=== PATIENT | female | born 1975 | race Caucasian/White ===

== ENCOUNTER → 2016-10-21 | Outpatient (CLI) | payer BC, OTHER ==
[~2016-10-21] MED LIST: ASTE0.15; D 50CAP3 PO; FLOM5CAP PO; FLON1SPR; GABA300C3 PO; MULTCAP8 PO; OMEP40CA2 PO; PERCOCET PO; RELP40TA PO
--- NOTE | 2016-10-21 09:23 | REP ---
Clinical: Nephrolithiasis. Comparison: 09/30/2016. Findings: Single supine view of the abdomen and pelvis again demonstrates a small nonobstructing bilateral nephroliths. Calcifications in the pelvis remains stable and likely represent phleboliths. Nonspecific bowel gas pattern noted. Skeletal structures stable. Impression: Continued evidence for small bilateral nonobstructing renal calculi. Signed by Michelet Ortiz MD 10/21/2016 09:14 A
== END ==
LOC: M SMT 08:23
PROVIDERS: ATTEND Nurse Practitioner Women's Health
DX: N20.0 Calculus of kidney (principal)

== ENCOUNTER → 2016-12-24 | Outpatient (CLI) | payer BC, OTHER ==
[2016-12-24 10:32] LABS: BASO % 0.4 % (0.0-1.0); EOS # 0.1 K/mm3 (0.0-0.50); EOS % 1.5 % (0.0-3.0); LARGE UNSTAINED CELL # 0.2 K/mm3 (0.0-0.4); MEAN CORPUSCULAR HEMOGLOBIN 31.7 pg (27.0-33.0); MEAN CORPUSCULAR HGB CONC 34.5 g/dl (32.0-36.5); MEAN CORPUSCULAR VOLUME 91.8 fl (80.0-96.0); MONO # 0.5 K/mm3 (0.0-0.8); MONO % 6.2 % (0.0-5.0); NEUTROPHILS # 4.4 K/mm3 (1.8-7.7); PLATELET COUNT, AUTOMATED 348 k/mm3 (150-450); RED CELL DISTRIBUTION WIDTH 12.2 % (11.5-14.5); WHITE BLOOD COUNT 8.1 K/mm3 (4.0-10.0)
[2016-12-24 10:51] LABS: ALBUMIN 3.7 GM/DL (3.2-5.2); ALKALINE PHOSPHATASE 40 U/L (45-117); ALT/SGPT 26 U/L (12-78); ANION GAP 9 MEQ/L (8-16); AST/SGOT 15 U/L (15-37); BILIRUBIN,TOTAL 0.4 MG/DL (0.2-1.0); BLOOD UREA NITROGEN 10 MG/DL (7-18); CALCIUM LEVEL 8.6 MG/DL (8.5-10.1); CARBON DIOXIDE LEVEL 26 MEQ/L (21-32); CHLORIDE LEVEL 106 MEQ/L (98-107); CREATININE FOR GFR 0.78 MG/DL (0.55-1.02); GLOMERULAR FILTRATION RATE > 60.0 (>58); GLUCOSE, FASTING 92 MG/DL (70-105); POTASSIUM SERUM 4.2 MEQ/L (3.5-5.1); SODIUM LEVEL 141 MEQ/L (136-145); TOTAL PROTEIN 7.4 GM/DL (6.4-8.2)
== END ==
LOC: M LAB 09:57
PROVIDERS: ATTEND Physician Assistant
DX: R10.84 Generalized abdominal pain (principal)

== ENCOUNTER → 2016-12-24 | Outpatient (REF) | payer BC, OTHER | LOC: M SFHCCAPE 09:47 | PROVIDERS: ATTEND Physician Assistant | DX: R10.84 Generalized abdominal pain (principal); R19.5 Other fecal abnormalities ==

== ENCOUNTER → 2016-12-27 | Outpatient (CLI) | payer BC, OTHER ==
--- NOTE | 2016-12-27 07:58 | REP ---
Clinical: Abdominal pain. Technique: Linton scale ultrasound using curved array transducer. Findings: The liver and pancreas are normal in contour, size, and echogenicity without focal hepatic or pancreatic lesions identified. The gallbladder is normal without gallstones, wall thickening or pericholecystic fluid. No biliary ductal dilatation is appreciated, and the common bile duct measures 5.0 mm diameter. The right kidney is normal in reniform shape without hydronephrosis and measures 11.3 x 6.1 x 5.5 centimeters with possible 5 mm lower pole calculus. No ascites. Visualized portions of the abdominal aorta normal. Impression: 1. Essentially normal right upper quadrant and gallbladder abdominal ultrasound. 2. A 5 mm nonobstructing right lower pole renal calculus cannot be excluded. Signed by Michelet Ortiz MD 12/27/2016 07:50 A
== END ==
LOC: M RAD 06:45
PROVIDERS: ATTEND Physician Assistant
DX: R10.11 Right upper quadrant pain (principal)

== ENCOUNTER → 2016-12-30 | Outpatient (CLI) | payer BC, OTHER ==
[2016-12-30 13:47] LABS: CONTROL LINE UCG INT CTR LINE PRESENT
== END ==
LOC: M LAB 13:06
PROVIDERS: ATTEND Physician Assistant
DX: R10.84 Generalized abdominal pain (principal)

== ENCOUNTER → 2017-01-03 | Outpatient (CLI) | payer BC, OTHER ==
--- NOTE | 2017-01-03 10:40 | REP ---
BILIARY SCAN WITH GALLBLADDER EJECTION FRACTION: 01/03/2017. Comparison: Gallbladder ultrasound 12/27/2016. Clinical history: Upper abdominal pain, nausea, reflux symptoms and bloating with decreased appetite. Findings: The patient received 6.1 mCi technetium 99m mebrofenin via an IV with sequential 5-minute anterior images for 1 hour. Thereafter, region of interest drawn over the gallbladder and sequential 2-minute images for 1 hour obtained beginning 65 minutes post injection and after completion of consumption of 8 ounces of Ensure Enlive for fatty meal. Tracer distribution in the liver is homogeneous with activity first seen in the gallbladder fossa at 10 minutes, in the common duct at 15 minutes and in the duodenum by 25 minutes. Activity is into the small bowel by 30 minutes with progressive washout of activity from the liver, peristalsis and small bowel and increasing accumulation of activity in the gallbladder fossa. Gallbladder ejection fraction is calculated at 54% at 1 hour. With this technique, greater than 35% ejection fraction is normal. Impression: 1. Prompt biliary transit and normal gallbladder ejection fraction. Unremarkable biliary scan. Signed by Mack Hearn MD 01/03/2017 05:38 P
== END ==
LOC: M RAD 07:40
PROVIDERS: ATTEND Physician Assistant
DX: R10.84 Generalized abdominal pain (principal)

== ENCOUNTER → 2017-02-28 | Outpatient (REF) | payer BC, OTHER ==
[~2017-02-28] MED LIST changes: +GABA-282 PO; -GABA300C3 PO
[2017-02-28 22:03] LABS: CALCIUM OXALATE CRYSTALS MODERATE
== END ==
LOC: M LAB REF 09:16
PROVIDERS: ATTEND Physician Assistant
DX: N39.0 Urinary tract infection, site not specified (principal)

== ENCOUNTER → 2017-03-12 | Outpatient (REF) | payer OTHER | LOC: M LAB REF 09:42 | PROVIDERS: ATTEND Physician Assistant | DX: R30.0 Dysuria (principal) ==

== ENCOUNTER → 2017-03-16 | Outpatient (REF) | payer OTHER | LOC: M SMT 13:10 | PROVIDERS: ATTEND Nurse Practitioner Women's Health | DX: R39.89 Other symptoms and signs involving the genitourinary system (principal) ==

== ENCOUNTER → 2017-03-18 | Outpatient (REF) | payer OTHER | LOC: M SFHCWAGY 11:18 | PROVIDERS: ATTEND Nurse Practitioner Women's Health | DX: Z12.4 Encounter for screening for malignant neoplasm of cervix (principal) ==

== ENCOUNTER → 2017-03-18 | Outpatient (CLI) | payer BC, OTHER ==
--- NOTE | 2017-03-18 12:39 | REPMRS ---
Patient History The patient states she had a clinical breast exam in 03/2017. Family history of prostate cancer in paternal grandfather at age 50 or over, prostate cancer in maternal grandfather at age 50 or over, and prostate cancer in maternal uncle at age 50 or over. Benign stereotactic core biopsy of the right breast, April 02, 2003. Reductions of both breasts, 2002. Taking hormonal contraceptives for 12 years. Digital Woman Screen Mammo: March 18, 2017 - Exam #: [id number] Bilateral CC and MLO view(s) were taken. Technologist: Sushma Souza Technologist Prior study comparison: March 12, 2016, digital woman screen mammo performed at [facility]. March 04, 2015, digital woman screen mammo performed at [facility]. February 28, 2014, digital woman screen mammo performed at [facility]. FINDINGS: There are scattered fibroglandular densities. There has been no change in the appearance of the mammogram from the prior studies. There is a mild amount of scattered fibroglandular density which is fairly symmetric. There is no interval development of dominant mass, architectural distortion, or clustered microcalcification suggestive of malignancy. ASSESSMENT: BI-RADS/ACR category 1 mammogram. Negative. Recommendation Routine screening mammogram in 1 year (for women over age 40). This mammogram was interpreted with the aid of an FDA-approved computer-aided dectection system. Electronically Signed By: Juilo Rider MD 03/18/17 0526
== END ==
LOC: M WHC 10:57
PROVIDERS: ATTEND Nurse Practitioner Women's Health
DX: Z12.31 Encounter for screening mammogram for malignant neoplasm of breast (principal); Z92.0 Personal history of contraception

== ENCOUNTER 2017-04-27 14:38 | Emergency (ER) | payer BC, OTHER ==
[~2017-04-27] VITALS: Ht 162.6 cm; Wt 90.9 kg
[2017-04-27] MEDS ORDERED: KETOROLAC 30 MG/ML VIAL (J1885) IV ONE (15:15)
[2017-04-27 15:52] LABS: BASO % 0.6 % (0.0-1.0); EOS # 0.1 K/mm3 (0.0-0.50); LARGE UNSTAINED CELL # 0.2 K/mm3 (0.0-0.4); LARGE UNSTAINED CELL % 2.1 % (0.0-4.0); LYMPH # 3.7 K/mm3 (1.5-4.5); LYMPH % 44.5 % (24.0-44.0); MEAN CORPUSCULAR HEMOGLOBIN 32.7 pg (27.0-33.0); MEAN CORPUSCULAR HGB CONC 35.1 g/dl (32.0-36.5); MEAN CORPUSCULAR VOLUME 93.2 fl (80.0-96.0); MONO # 0.4 K/mm3 (0.0-0.8); MONO % 4.6 % (0.0-5.0); NEUTROPHILS # 3.8 K/mm3 (1.8-7.7); NEUTROPHILS % 47.2 % (36.0-66.0); PLATELET COUNT, AUTOMATED 313 k/mm3 (150-450)
[2017-04-27 16:03] LABS: ANION GAP 6 MEQ/L (8-16); BLOOD UREA NITROGEN 11 MG/DL (7-18); CALCIUM LEVEL 9.2 MG/DL (8.5-10.1); CARBON DIOXIDE LEVEL 24 MEQ/L (21-32); CHLORIDE LEVEL 107 MEQ/L (98-107); CREATININE FOR GFR 0.69 MG/DL (0.55-1.02); GLOMERULAR FILTRATION RATE > 60.0 (>58); GLUCOSE, FASTING 85 MG/DL (70-105); POTASSIUM SERUM 4.1 MEQ/L (3.5-5.1); SODIUM LEVEL 137 MEQ/L (136-145)
[2017-04-27 16:44] VITALS: BP 142/84
--- NOTE | 2017-04-27 16:47 | REP ---
CT abdomen and pelvis without IV and oral contrast: Comparison is 09/15/2016. There is a 4 mm calcification in the distal right ureter at its junction with the urinary bladder. There is mild right hydronephrosis. There is no left ureteral calculus. There is no left hydronephrosis. There is a 6 ml nonobstructive calculus at the mid pole of the right kidney. There are no other left renal calculi. There is a 5 mm nonobstructive calculus in the lower pole of the left kidney. There are no other left renal calculi. There is no perinephric stranding on the right on the left. The visualized lung blank are unremarkable. The unenhanced hepatic parenchyma, gallbladder, pancreas and spleen are normal size and unremarkable. The adrenals and abdominal aorta are unremarkable. There is no bowel distension or obstruction. The mesentery is unremarkable. Pelvis: The appendix has a normal appearance. There are bilateral tubal ligation clips, unchanged. The uterus and adnexa are otherwise unremarkable. There is no ascites or adenopathy. The pelvic bowel loops are unremarkable. Impression: The there is a 4 mm calcification in the distal right ureter at its junction with the urinary bladder and mild right hydronephrosis. There are bilateral nonobstructive renal calculi. Signed by Kiel Mello MD 04/27/2017 04:39 P
[2017-04-27] MEDS ORDERED: NAPR500T PO (16:50)
[2017-04-27] MEDS ORDERED: NORCOTAB PO (16:50)
[2017-04-27] MEDS ORDERED: FLOM5CAP PO (16:50)
== END 2017-04-27 17:04 | disposition home or self-care (01) ==
LOC: M ED 14:38
DX: N20.1 Calculus of ureter (principal)
CPT/HCPCS: 36415; 74176; 80048; 81001; 81025; 85025; 86140; 87086; 96374; 99284; J1885

== ENCOUNTER → 2017-05-31 | Outpatient (REF) | payer OTHER ==
[~2017-05-31] MED LIST changes: +NAPR500T PO; +NORCOTAB PO
== END ==
LOC: M SFHCCAPE 12:55
PROVIDERS: ATTEND Physician Assistant
DX: Z87.442 Personal history of urinary calculi (principal)

== ENCOUNTER → 2017-06-23 | Outpatient (CLI) | payer OTHER ==
[2017-06-23 13:35] LABS: BASO % 0.6 % (0.0-1.0); EOS # 0.1 K/mm3 (0.0-0.50); LARGE UNSTAINED CELL # 0.2 K/mm3 (0.0-0.4); LARGE UNSTAINED CELL % 2.2 % (0.0-4.0); LYMPH # 2.7 K/mm3 (1.5-4.5); LYMPH % 39.9 % (24.0-44.0); MEAN CORPUSCULAR HEMOGLOBIN 32.5 pg (27.0-33.0); MEAN CORPUSCULAR HGB CONC 34.6 g/dl (32.0-36.5); MEAN CORPUSCULAR VOLUME 93.9 fl (80.0-96.0); MONO # 0.3 K/mm3 (0.0-0.8); MONO % 4.6 % (0.0-5.0); NEUTROPHILS # 3.5 K/mm3 (1.8-7.7); NEUTROPHILS % 50.8 % (36.0-66.0); PLATELET COUNT, AUTOMATED 352 k/mm3 (150-450); RED CELL DISTRIBUTION WIDTH 11.9 % (11.5-14.5); WHITE BLOOD COUNT 6.9 K/mm3 (4.0-10.0)
[2017-06-23 14:03] LABS: ALBUMIN 3.5 GM/DL (3.2-5.2); ALBUMIN/GLOBULIN RATIO 1.03 (1.00-1.93); ALKALINE PHOSPHATASE 37 U/L (45-117); ALT/SGPT 23 U/L (12-78); ANION GAP 10 MEQ/L (8-16); AST/SGOT 14 U/L (15-37); BILIRUBIN,TOTAL 0.4 MG/DL (0.2-1.0); BLOOD UREA NITROGEN 14 MG/DL (7-18); CALCIUM LEVEL 8.8 MG/DL (8.5-10.1); CARBON DIOXIDE LEVEL 26 MEQ/L (21-32); CHLORIDE LEVEL 106 MEQ/L (98-107); CHOLESTEROL LEVEL 227 MG/DL (<200); CREATININE FOR GFR 0.65 MG/DL (0.55-1.02); FREE T4 1.05 NG/DL (0.76-1.46); GLOMERULAR FILTRATION RATE > 60.0 (>58); GLUCOSE, FASTING 79 MG/DL (70-105); POTASSIUM SERUM 4.6 MEQ/L (3.5-5.1); SODIUM LEVEL 142 MEQ/L (136-145); TOTAL PROTEIN 6.9 GM/DL (6.4-8.2); TRIGLYCERIDES LEVEL 161 MG/DL (<150)
== END ==
LOC: M WUC 10:06
PROVIDERS: ATTEND Physician Assistant
DX: E66.09 Other obesity due to excess calories (principal)

== ENCOUNTER → 2017-07-19 | Outpatient (CLI) | payer BC, OTHER ==
--- NOTE | 2017-07-19 14:13 | REP ---
Chest two views HISTORY: Bronchitis Comparison: 05/13/2015 The lungs are clear. The heart is normal in size. The pulmonary vasculature is normal in appearance. The bony structure is intact. IMPRESSION: No acute disease. Signed by Cole Maldonado MD 07/19/2017 02:04 P
== END ==
LOC: M WUC 11:33
PROVIDERS: ATTEND Physician Assistant
DX: J20.9 Acute bronchitis, unspecified (principal)

== ENCOUNTER → 2017-08-17 | Outpatient (CLI) | payer BC, OTHER ==
[2017-08-17 14:14] LABS: BASO % 0.6 % (0.0-1.0); EOS # 0.1 10^3/uL (0.0-0.50); IMMATURE GRANULOCYTE % 0.6 % (0-0); LYMPH # 3.4 10^3/uL (1.5-4.5); LYMPH % 48.6 % (24.0-44.0); MEAN CORPUSCULAR HEMOGLOBIN 31.5 pg (27.0-33.0); MEAN CORPUSCULAR HGB CONC 33.6 g/dl (32.0-36.5); MEAN CORPUSCULAR VOLUME 93.7 fl (80.0-96.0); MONO # 0.6 10^3/uL (0.0-0.8); MONO % 8.1 % (0.0-5.0); NEUTROPHILS # 2.9 10^3/uL (1.8-7.7); NEUTROPHILS % 41.1 % (36.0-66.0); PLATELET COUNT, AUTOMATED 391 10^3/uL (150-450); RED CELL DISTRIBUTION WIDTH 12.6 % (11.5-14.5)
[2017-08-22 14:11] LABS: ANTI TETANUS ANTIBODY 1.06 IU/mL (<0.10); IMMUNOGLOBULIN D 4.69 mg/dL (<14.11); STREP PNEUMO TYPE 12F 0.1 ug/mL (>1.3); STREP PNEUMO TYPE 18C 11.4 ug/mL (>1.3); STREP PNEUMO TYPE 19A 30.3 ug/mL (>1.3); STREP PNEUMO TYPE 19F 1.1 ug/mL (>1.3); STREP PNEUMO TYPE 23F 1.2 ug/mL (>1.3); STREP PNEUMO TYPE 6B 10.2 ug/mL (>1.3); STREP PNEUMO TYPE 7F 0.5 ug/mL (>1.3); STREP PNEUMO TYPE 9N 0.5 ug/mL (>1.3); STREP PNEUMO TYPE 9V 0.5 ug/mL (>1.3)
== END ==
LOC: M SMT 11:41
PROVIDERS: ATTEND Allergy & Immunology Allergy
DX: R05 Cough (principal); J30.89 Other allergic rhinitis; D84.9 Immunodeficiency, unspecified

== ENCOUNTER → 2017-08-22 | Outpatient (CLI) | payer BC, OTHER ==
[2017-08-24 00:07] LABS: Lyme Disease IgG/IgM Antibodie <0.91 ISR (0.00-0.90); Lyme Disease IgM Ab Quantitati <0.80 index (0.00-0.79)
== END ==
LOC: M WUC 09:03
PROVIDERS: ATTEND Physician Assistant
DX: A69.20 Lyme disease, unspecified (principal)

== ENCOUNTER → 2017-09-07 | Outpatient (REF) | payer OTHER ==
[2017-09-10 00:08] LABS: Lyme Disease IgG/IgM Antibodie <0.91 ISR (0.00-0.90); Lyme Disease IgM Ab Quantitati <0.80 index (0.00-0.79)
== END ==
LOC: M SFHCCAPE 17:50
PROVIDERS: ATTEND Physician Assistant
DX: A69.20 Lyme disease, unspecified (principal)

== ENCOUNTER → 2017-10-17 | Outpatient (CLI) | payer OTHER ==
[2017-10-21 14:16] LABS: STREP PNEUMO TYPE 1 >10.6 ug/mL (>1.3); STREP PNEUMO TYPE 12F 3.1 ug/mL (>1.3); STREP PNEUMO TYPE 14 >46.7 ug/mL (>1.3); STREP PNEUMO TYPE 18C >19.0 ug/mL (>1.3); STREP PNEUMO TYPE 19A >30.4 ug/mL (>1.3); STREP PNEUMO TYPE 19F >42.9 ug/mL (>1.3); STREP PNEUMO TYPE 23F 10.4 ug/mL (>1.3); STREP PNEUMO TYPE 3 5.2 ug/mL (>1.3); STREP PNEUMO TYPE 4 >24.7 ug/mL (>1.3); STREP PNEUMO TYPE 6B >70.6 ug/mL (>1.3); STREP PNEUMO TYPE 7F >30.2 ug/mL (>1.3); STREP PNEUMO TYPE 8 5.7 ug/mL (>1.3); STREP PNEUMO TYPE 9N >31.2 ug/mL (>1.3); STREP PNEUMO TYPE 9V >20.4 ug/mL (>1.3)
== END ==
LOC: M WUC 13:28
DX: J32.9 Chronic sinusitis, unspecified (principal)

== ENCOUNTER 2017-11-19 10:38 | Emergency (ER) | payer BC, OTHER ==
[2017-11-19 11:09] LABS: BASO % 0.5 % (0.0-1.0); EOS # 0.1 10^3/uL (0.0-0.50); EOS % 1.1 % (0.0-3.0); HEMATOCRIT 41.6 % (36.0-47.0); HEMOGLOBIN 14.3 g/dl (12.0-16.0); IMMATURE GRANULOCYTE % 0.4 % (0-3.0); LYMPH # 3.3 10^3/uL (1.5-4.5); LYMPH % 44.5 % (24.0-44.0); MEAN CORPUSCULAR HEMOGLOBIN 31.6 pg (27.0-33.0); MEAN CORPUSCULAR HGB CONC 34.4 g/dl (32.0-36.5); MONO # 0.5 10^3/uL (0.0-0.8); MONO % 7.1 % (0.0-5.0); NEUTROPHILS # 3.5 10^3/uL (1.8-7.7); NEUTROPHILS % 46.4 % (36.0-66.0); PLATELET COUNT, AUTOMATED 357 10^3/uL (150-450); RED BLOOD COUNT 4.52 10^6/uL (4.00-5.40); RED CELL DISTRIBUTION WIDTH 12.1 % (11.5-14.5); WHITE BLOOD COUNT 7.5 10^3/uL (4.0-10.0)
[2017-11-19] MEDS: KETOROLAC 30 MG/ML VIAL (J1885) IV (11:22)
[2017-11-19 11:41] LABS: D-DIMER QUANT < 270.0 ng/ml (<500)
[2017-11-19 11:49] LABS: ALBUMIN 3.6 GM/DL (3.2-5.2); ALKALINE PHOSPHATASE 49 U/L (45-117); ALT/SGPT 52 U/L (12-78); ANION GAP 7 MEQ/L (8-16); AST/SGOT 29 U/L (7-37); BILIRUBIN,DIRECT < 0.1 MG/DL (0.0-0.2); BILIRUBIN,TOTAL 0.5 MG/DL (0.2-1.0); BLOOD UREA NITROGEN 10 MG/DL (7-18); CALCIUM LEVEL 8.9 MG/DL (8.5-10.1); CARBON DIOXIDE LEVEL 26 MEQ/L (21-32); CHLORIDE LEVEL 108 MEQ/L (98-107); CPK CREATINE PHOSPHOKINASE 67 U/L (26-192); CREATININE FOR GFR 0.88 MG/DL (0.55-1.30); GLOMERULAR FILTRATION RATE > 60.0 (>58); GLUCOSE, FASTING 102 MG/DL (70-100); SODIUM LEVEL 141 MEQ/L (136-145); TOTAL PROTEIN 7.6 GM/DL (6.4-8.2); TROPONIN I < 0.02 NG/ML (< 0.10)
[2017-11-19 11:54] LABS: MB/CK RELATIVE INDEX 1.49 (< OR =4)
[2017-11-19] MEDS: PERCOCET 5MG/325MG TAB PO (12:21)
[2017-11-19 14:17] LABS: CPK CREATINE PHOSPHOKINASE 59 U/L (26-192); MB/CK RELATIVE INDEX 1.69 (< OR =4); TROPONIN I < 0.02 NG/ML (< 0.10)
[2017-11-19] MEDS: ASPIRIN 81 MG CHEW TABLET PO (15:00)
== END 2017-11-19 15:05 | disposition home or self-care (01) ==
LOC: M ED 10:38
DX: R07.9 Chest pain, unspecified (principal); Z82.49 Family history of ischemic heart disease and other diseases of the circulatory system; Z79.899 Other long term (current) drug therapy; Z79.82 Long term (current) use of aspirin
CPT/HCPCS: J1885

== ENCOUNTER → 2017-11-22 | Outpatient (CLI) | payer OTHER, BC ==
[2017-11-22 18:08] LABS: BASO # 0.1 10^3/uL (0.0-0.2); BASO % 0.6 % (0.0-1.0); EOS # 0.1 10^3/uL (0.0-0.50); EOS % 1.1 % (0.0-3.0); HEMATOCRIT 39.8 % (36.0-47.0); HEMOGLOBIN 13.5 g/dl (12.0-16.0); IMMATURE GRANULOCYTE % 0.3 % (0-3.0); LYMPH # 3.6 10^3/uL (1.5-4.5); LYMPH % 37.5 % (24.0-44.0); MEAN CORPUSCULAR HEMOGLOBIN 31.3 pg (27.0-33.0); MEAN CORPUSCULAR HGB CONC 33.9 g/dl (32.0-36.5); MEAN CORPUSCULAR VOLUME 92.3 fl (80.0-96.0); MONO # 0.7 10^3/uL (0.0-0.8); MONO % 6.9 % (0.0-5.0); NEUTROPHILS # 5.1 10^3/uL (1.8-7.7); NEUTROPHILS % 53.6 % (36.0-66.0); PLATELET COUNT, AUTOMATED 381 10^3/uL (150-450); RED BLOOD COUNT 4.31 10^6/uL (4.00-5.40); WHITE BLOOD COUNT 9.5 10^3/uL (4.0-10.0)
[2017-11-22 18:47] LABS: ERYTHROCYTE SEDIMENTATION RATE 7 mm/hr (0-20)
[2017-11-22 19:29] LABS: ALBUMIN 3.8 GM/DL (3.2-5.2); ALBUMIN/GLOBULIN RATIO 1.03 (1.00-1.93); ALKALINE PHOSPHATASE 49 U/L (45-117); ALT/SGPT 47 U/L (12-78); ANION GAP 8 MEQ/L (8-16); AST/SGOT 22 U/L (7-37); BILIRUBIN,TOTAL 0.3 MG/DL (0.2-1.0); BLOOD UREA NITROGEN 12 MG/DL (7-18); CALCIUM LEVEL 8.8 MG/DL (8.5-10.1); CARBON DIOXIDE LEVEL 27 MEQ/L (21-32); CHLORIDE LEVEL 105 MEQ/L (98-107); CREATININE FOR GFR 0.81 MG/DL (0.55-1.30); GLOMERULAR FILTRATION RATE > 60.0 (>58); GLUCOSE, FASTING 99 MG/DL (70-100); RHEUMATOID FACTOR QUANT < 10.0 IU/ML (0-15.0); SODIUM LEVEL 140 MEQ/L (136-145); TOTAL PROTEIN 7.5 GM/DL (6.4-8.2)
[2017-11-24 10:13] LABS: ANTINUCLEAR ANTIBODIES DIRECT Negative (Negative)
== END ==
LOC: M WUC 13:59
DX: R51 Headache (principal)
CPT/HCPCS: 84443

== ENCOUNTER → 2018-01-02 | Outpatient (CLI) | payer OTHER, BC ==
[2018-01-02 17:40] LABS: FOLLICLE STIMULATING HORMONE 10.9 mIU/mL; LUTEINIZING HORMONE 3.7 mIU/mL
== END ==
LOC: M WUC 11:01
DX: R23.2 Flushing (principal); R61 Generalized hyperhidrosis
CPT/HCPCS: 83001

== ENCOUNTER → 2018-02-23 | Outpatient (CLI) | payer BC | LOC: M WHC 10:21 | DX: N85.2 Hypertrophy of uterus (principal); D25.1 Intramural leiomyoma of uterus; D25.0 Submucous leiomyoma of uterus; N92.6 Irregular menstruation, unspecified | CPT/HCPCS: 76830 ==

== ENCOUNTER → 2018-03-20 | Outpatient (CLI) | payer BC | LOC: M WHC 09:40 | DX: Z12.31 Encounter for screening mammogram for malignant neoplasm of breast (principal) | CPT/HCPCS: 77067 ==

== ENCOUNTER 2018-05-02 08:47 | Emergency (ER) | payer BC, OTHER ==
[2018-05-02 09:38] LABS: KETONE, URINE AUTO RFX NEGATIVE (NEGATIVE); LEUKOCYTE ESTERASE UR AUTO RFX NEGATIVE (NEGATIVE); NITRITE, URINE AUTO RFX NEGATIVE (NEGATIVE); RBC, URINE AUTO RFX TNTC /HPF (0-3); SPECIFIC GRAVITY UR AUTO RFX 1.016 (1.002-1.035); SQUAM EPITHELIAL CELL UR AURFX 0 /HPF (0-6); YEAST LIKE CELL URINE AUTO RFX MODERATE
[2018-05-02 09:39] LABS: WBC, URINE AUTO RFX 31 /HPF (0-3)
[2018-05-02 10:30] LABS: BASO # 0.1 10^3/uL (0.0-0.2); BASO % 0.6 % (0.0-1.0); EOS # 0.1 10^3/uL (0.0-0.50); EOS % 1.6 % (0.0-3.0); HEMATOCRIT 38.2 % (36.0-47.0); HEMOGLOBIN 12.9 g/dl (12.0-15.5); IMMATURE GRANULOCYTE % 0.6 % (0-3.0); LYMPH # 2.7 10^3/uL (1.5-4.5); LYMPH % 31.2 % (24.0-44.0); MEAN CORPUSCULAR HEMOGLOBIN 31.1 pg (27.0-33.0); MEAN CORPUSCULAR HGB CONC 33.8 g/dl (32.0-36.5); MONO # 0.9 10^3/uL (0.0-0.8); NEUTROPHILS # 4.9 10^3/uL (1.8-7.7); PLATELET COUNT, AUTOMATED 325 10^3/uL (150-450); RED BLOOD COUNT 4.15 10^6/uL (4.00-5.40); RED CELL DISTRIBUTION WIDTH 12.4 % (11.5-14.5); WHITE BLOOD COUNT 8.7 10^3/uL (4.0-10.0)
[2018-05-02] MEDS: NS 1,000 ML IV (10:31)
[2018-05-02] MEDS: KETOROLAC 30 MG/ML VIAL (J1885) IV (10:31)
[2018-05-02 10:47] LABS: ALBUMIN 3.3 GM/DL (3.2-5.2); ALBUMIN/GLOBULIN RATIO 0.94 (1.00-1.93); ALKALINE PHOSPHATASE 46 U/L (45-117); ALT/SGPT 25 U/L (12-78); ANION GAP 7 MEQ/L (8-16); AST/SGOT 15 U/L (7-37); BILIRUBIN,TOTAL 0.2 MG/DL (0.2-1.0); BLOOD UREA NITROGEN 16 MG/DL (7-18); CALCIUM LEVEL 8.6 MG/DL (8.5-10.1); CARBON DIOXIDE LEVEL 24 MEQ/L (21-32); CHLORIDE LEVEL 111 MEQ/L (98-107); CREATININE FOR GFR 0.78 MG/DL (0.55-1.30); GLOMERULAR FILTRATION RATE > 60.0 (>58); GLUCOSE, FASTING 98 MG/DL (70-100); LIPASE 373 U/L (73-393); POTASSIUM SERUM 4.8 MEQ/L (3.5-5.1); SODIUM LEVEL 142 MEQ/L (136-145); TOTAL PROTEIN 6.8 GM/DL (6.4-8.2)
== END 2018-05-02 11:17 | disposition home or self-care (01) ==
LOC: M ED 08:47
DX: N20.1 Calculus of ureter (principal); I10 Essential (primary) hypertension; M79.7 Fibromyalgia; K21.9 Gastro-esophageal reflux disease without esophagitis; Z87.442 Personal history of urinary calculi; Z79.899 Other long term (current) drug therapy; Z79.82 Long term (current) use of aspirin; Z79.51 Long term (current) use of inhaled steroids
CPT/HCPCS: J1885

== ENCOUNTER → 2018-05-10 | Outpatient (REF) | payer OTHER ==
[2018-05-10 18:52] LABS: APPEARANCE, URINE CLEAR (CLEAR); BACTERIA, URINE AUTO NEGATIVE (NEGATIVE); BILIRUBIN, URINE AUTO NEGATIVE (NEGATIVE); BLOOD, URINE BLOOD NEGATIVE (NEGATIVE); COLOR, URINE YELLOW (YELLOW); GLUCOSE, URINE (UA) AUTO NEGATIVE (NEGATIVE); KETONE, URINE AUTO NEGATIVE (NEGATIVE); LEUKOCYTE ESTERASE, URINE AUTO NEGATIVE (NEGATIVE); MUCUS, URINE SMALL (NEGATIVE); NITRITE, URINE AUTO NEGATIVE (NEGATIVE); PROTEIN, URINE AUTO NEGATIVE (NEGATIVE); RBC, URINE AUTO 1 /HPF (0-3); SPECIFIC GRAVITY URINE AUTO 1.012 (1.002-1.035); SQUAMOUS EPITHELIAL CELL UR AU 0 /HPF (0-6); UROBILINOGEN, URINE AUTO 0.2 mg/dL (0.0-2.0); WBC, URINE AUTO 3 /HPF (0-3)
== END ==
LOC: M SMT 17:05
DX: N13.2 Hydronephrosis with renal and ureteral calculous obstruction (principal)

== ENCOUNTER → 2018-05-24 | Outpatient (CLI) | payer BC, OTHER ==
[2018-05-24 13:44] LABS: AMORPHOUS SEDIMENT SMALL (NEGATIVE); APPEARANCE, URINE CLOUDY (CLEAR); BACTERIA, URINE AUTO 2+ (NEGATIVE); BILIRUBIN, URINE AUTO NEGATIVE (NEGATIVE); BLOOD, URINE BLOOD 1+ (NEGATIVE); COLOR, URINE YELLOW (YELLOW); GLUCOSE, URINE (UA) AUTO NEGATIVE (NEGATIVE); KETONE, URINE AUTO NEGATIVE (NEGATIVE); LEUKOCYTE ESTERASE, URINE AUTO 2+ (NEGATIVE); MUCUS, URINE SMALL (NEGATIVE); NITRITE, URINE AUTO NEGATIVE (NEGATIVE); PROTEIN, URINE AUTO NEGATIVE (NEGATIVE); RBC, URINE AUTO 6 /HPF (0-3); SPECIFIC GRAVITY URINE AUTO 1.014 (1.002-1.035); SQUAMOUS EPITHELIAL CELL UR AU 3 /HPF (0-6); UROBILINOGEN, URINE AUTO 0.2 mg/dL (0.0-2.0); WBC, URINE AUTO 44 /HPF (0-3)
[2018-05-24 17:30] LABS: HEMATOCRIT 37.6 % (36.0-47.0); HEMOGLOBIN 12.6 g/dl (12.0-15.5); MEAN CORPUSCULAR HEMOGLOBIN 31.4 pg (27.0-33.0); MEAN CORPUSCULAR HGB CONC 33.5 g/dl (32.0-36.5); MEAN CORPUSCULAR VOLUME 93.8 fl (80.0-96.0); PLATELET COUNT, AUTOMATED 393 10^3/uL (150-450); RED BLOOD COUNT 4.01 10^6/uL (4.00-5.40); RED CELL DISTRIBUTION WIDTH 12.2 % (11.5-14.5); WHITE BLOOD COUNT 8.4 10^3/uL (4.0-10.0)
[2018-05-24 17:43] LABS: INR 0.94; PROTHROMBIN TIME 12.6 SECONDS (12.1-14.4)
[2018-05-24 17:44] LABS: PARTIAL THROMBOPLASTIN TIME 36.2 SECONDS (25.4-37.6)
[2018-05-24 17:56] LABS: ANION GAP 12 MEQ/L (8-16); BLOOD UREA NITROGEN 20 MG/DL (7-18); CARBON DIOXIDE LEVEL 23 MEQ/L (21-32); CHLORIDE LEVEL 107 MEQ/L (98-107); CREATININE FOR GFR 1.14 MG/DL (0.55-1.30); GLOMERULAR FILTRATION RATE 54.9 (>58); GLUCOSE, FASTING 82 MG/DL (70-100); POTASSIUM SERUM 4.8 MEQ/L (3.5-5.1); SODIUM LEVEL 142 MEQ/L (136-145)
== END ==
LOC: M SMT 10:07
DX: Z01.812 Encounter for preprocedural laboratory examination (principal); N20.1 Calculus of ureter
CPT/HCPCS: 80048

== ENCOUNTER 2018-05-25 06:00 | Day surgery (SDC) | payer BC, OTHER ==
[~2018-05-25 06:00] MED LIST changes: -ASTE0.15; +CIPROFLOXACIN 500 MG TAB PO; -D 50CAP3 PO; -FLOM5CAP PO; -FLON1SPR; -GABA-282 PO; -MULTCAP8 PO; -NAPR500T PO; -NORCOTAB PO; -OMEP40CA2 PO; -PERCOCET PO; -RELP40TA PO
[2018-05-25] MEDS ORDERED: LR 1,000 ML IV ×2 (06:15→09:15)
[2018-05-25] MEDS ORDERED: fentaNYL 100 MCG/2 ML INJECTION (J3010) As Ordered ×2 (07:00→07:52)
[2018-05-25] MEDS ORDERED: MIDAZOLAM INJ 2 MG/2 ML VIAL (J2250) As Ordered (07:00)
[2018-05-25] MEDS ORDERED: PROPOFOL 200 MG/20 ML VIAL As Ordered (07:01)
[2018-05-25] MEDS ORDERED: LIDOCAINE 2% INJ 100 MG/5 ML SDV (FOR ANES.) As Ordered (07:01)
[2018-05-25] MEDS ORDERED: dexameTHASONE 4 MG/ML 1ML VIAL (J1100) As Ordered (07:03)
[2018-05-25] MEDS ORDERED: ONDANSETRON 4MG/2ML VIAL (J2405) As Ordered (07:03)
[2018-05-25] MEDS ORDERED: SCOPOLAMINE 1MG TRANSDERMAL PATCH As Ordered (07:20)
[2018-05-25] MEDS ORDERED: SCOPOLAMINE 1MG TRANSDERMAL PATCH TOP (07:30)
[2018-05-25] MEDS ORDERED: KETOROLAC 60 MG/2 ML VIAL (J1885) As Ordered (07:47)
[2018-05-25] MEDS: CONRAY-60 60% 50ML VIAL (Q9961) As Ordered (07:59)
[2018-05-25] MEDS ORDERED: TAMSULOSIN 0.4 MG CAP PO (09:00)
[2018-05-25] MEDS ORDERED: ONDANSETRON 4MG/2ML VIAL (J2405) IV (09:15)
[2018-05-25] MEDS ORDERED: fentaNYL 100 MCG/2 ML INJECTION (J3010) IV (09:15)
[2018-05-25] MEDS ORDERED: HYDROMORPHONE HCL 0.5 MG/ 0.5 ML SYRINGE (J1170 PER 1) IV (09:15)
[2018-05-25] MEDS ORDERED: PERCOCET 5MG/325MG TAB PO (09:15)
[2018-05-25] MEDS: PERCOCET 5MG/325MG TAB PO ×2 (09:17→09:45)
[2018-06-01 00:06] LABS: CA Oxalate Dihy 35 % (.); Ca Ox Monohydrate 60 % (.); Size 5x5x3 mm (.)
== END 2018-05-25 10:26 | disposition home or self-care (01) ==
LOC: M SDC 06:00
DX: N20.1 Calculus of ureter (principal); I10 Essential (primary) hypertension; K21.9 Gastro-esophageal reflux disease without esophagitis; M79.7 Fibromyalgia; J45.909 Unspecified asthma, uncomplicated; F32.9 Major depressive disorder, single episode, unspecified; F41.9 Anxiety disorder, unspecified; Z79.899 Other long term (current) drug therapy; Z79.82 Long term (current) use of aspirin
CPT/HCPCS: 52356

== ENCOUNTER 2018-06-23 12:48 | Day surgery (SDC) | payer BC, OTHER ==
[~2018-06-23 12:48] MED LIST changes: -CIPROFLOXACIN 500 MG TAB PO; +GLYCOPYRROLATE INJ 0.2 MG/ML 2 ML VIAL As Ordered; +HYDROmorphone HCL 2 MG/ML 1ML VIAL (J1170) As Ordered; +KETOROLAC 60 MG/2 ML VIAL (J1885) As Ordered; +LABETALOL HCL 100 MG/20 ML VIAL As Ordered; +LIDOCAINE 2% INJ 100 MG/5 ML SDV (FOR ANES.) As Ordered; +MIDAZOLAM INJ 2 MG/2 ML VIAL (J2250) As Ordered; +NEOSTIGMINE 10 MG/10 ML VIAL (J2710) As Ordered; +ONDANSETRON 4MG/2ML VIAL (J2405) As Ordered; +PROPOFOL 200 MG/20 ML VIAL As Ordered; +ROCURONIUM BROMIDE 50 MG/5 ML VIAL As Ordered; +dexameTHASONE 4 MG/ML 1ML VIAL (J1100) As Ordered; +fentaNYL 100 MCG/2 ML INJECTION (J3010) As Ordered
[2018-06-23] MEDS: SCOPOLAMINE 1MG TRANSDERMAL PATCH TOP (15:44)
[2018-06-23] MEDS: LR 1,000 ML IV ×2 (15:45→19:15)
[2018-06-23] MEDS: METHYLENE BLUE 0.5% (5MG/ML) 10 ML AMP (PROVAYBLUE)(Q9968 PER 1MG) As Ordered (15:45)
[2018-06-23] MEDS: BUPIVACAINE HCL 0.25% 30 ML VIAL As Ordered (16:42)
[2018-06-23] MEDS ORDERED: HYDROMORPHONE HCL 0.5 MG/ 0.5 ML SYRINGE (J1170 PER 1) IV (19:15)
[2018-06-23] MEDS ORDERED: MORPHINE 4 MG/ML 1ML VIAL/SYRINGE (J2270) IV (19:15)
[2018-06-23] MEDS ORDERED: PERCOCET 5MG/325MG TAB PO ×2 (19:15)
[2018-06-23] MEDS ORDERED: PROMETHAZINE INJ 25 MG/ML VIAL (J2550) IV (19:15)
[2018-06-23] MEDS ORDERED: fentaNYL 100 MCG/2 ML INJECTION (J3010) IV (19:15)
[2018-06-23] MEDS ORDERED: ONDANSETRON 4MG/2ML VIAL (J2405) IV (19:15)
[2018-06-23] MEDS ORDERED: LR 1,000 ML IV (19:15)
[2018-06-23] MEDS: KETOROLAC 30 MG/ML VIAL (J1885) IV (20:44)
[2018-06-23] MEDS: zolPIDEM TARTRATE 5 MG TAB PO (20:45)
[2018-06-23] MEDS: PERCOCET 5MG/325MG TAB PO (22:30)
[2018-06-23] MEDS ORDERED: diphenhydrAMINE 25 MG CAP PO (23:30)
[2018-06-24] MEDS: KETOROLAC 30 MG/ML VIAL (J1885) IV ×2 (03:06→08:52)
[2018-06-24] MEDS: PERCOCET 5MG/325MG TAB PO ×2 (06:01→10:41)
[2018-06-24 06:20] LABS: HEMATOCRIT 35.7 % (36.0-47.0); HEMOGLOBIN 12.1 g/dl (12.0-15.5); MEAN CORPUSCULAR HEMOGLOBIN 31.3 pg (27.0-33.0); MEAN CORPUSCULAR HGB CONC 33.9 g/dl (32.0-36.5); MEAN CORPUSCULAR VOLUME 92.5 fl (80.0-96.0); PLATELET COUNT, AUTOMATED 336 10^3/uL (150-450); RED BLOOD COUNT 3.86 10^6/uL (4.00-5.40); RED CELL DISTRIBUTION WIDTH 12.7 % (11.5-14.5); WHITE BLOOD COUNT 13.4 10^3/uL (4.0-10.0)
[2018-06-24] MEDS: CEPACOL LOZENGE PO (09:27)
[2018-06-24] MEDS ORDERED: zolPIDEM TARTRATE 10MG TAB PO (21:00)
== END 2018-06-24 11:21 | disposition home or self-care (01) ==
LOC: M SDC 12:48 → M MSPAV 19:50
DX: N93.9 Abnormal uterine and vaginal bleeding, unspecified (principal); I10 Essential (primary) hypertension; E78.00 Pure hypercholesterolemia, unspecified; K21.9 Gastro-esophageal reflux disease without esophagitis; M79.7 Fibromyalgia; F41.9 Anxiety disorder, unspecified; F32.9 Major depressive disorder, single episode, unspecified; G43.909 Migraine, unspecified, not intractable, without status migrainosus; J45.909 Unspecified asthma, uncomplicated; R06.83 Snoring; G47.30 Sleep apnea, unspecified; Z88.8 Allergy status to other drugs, medicaments and biological substances; Z79.899 Other long term (current) drug therapy; Z79.3 Long term (current) use of hormonal contraceptives; Z79.82 Long term (current) use of aspirin; Z87.442 Personal history of urinary calculi; Z98.51 Tubal ligation status
CPT/HCPCS: 58571

== ENCOUNTER → 2018-06-27 | Outpatient (REF) | payer OTHER ==
[2018-06-27 13:48] LABS: APPEARANCE, URINE CLEAR (CLEAR); BACTERIA, URINE AUTO NEGATIVE (NEGATIVE); BILIRUBIN, URINE AUTO NEGATIVE (NEGATIVE); BLOOD, URINE BLOOD NEGATIVE (NEGATIVE); COLOR, URINE STRAW (YELLOW); GLUCOSE, URINE (UA) AUTO NEGATIVE (NEGATIVE); KETONE, URINE AUTO NEGATIVE (NEGATIVE); LEUKOCYTE ESTERASE, URINE AUTO NEGATIVE (NEGATIVE); MUCUS, URINE SMALL (NEGATIVE); NITRITE, URINE AUTO NEGATIVE (NEGATIVE); PROTEIN, URINE AUTO NEGATIVE (NEGATIVE); RBC, URINE AUTO 0 /HPF (0-3); SPECIFIC GRAVITY URINE AUTO 1.004 (1.002-1.035); SQUAMOUS EPITHELIAL CELL UR AU 1 /HPF (0-6); UROBILINOGEN, URINE AUTO 0.2 mg/dL (0.0-2.0); WBC, URINE AUTO 1 /HPF (0-3)
== END ==
LOC: M SMT 13:16
DX: Z46.6 Encounter for fitting and adjustment of urinary device (principal)

== ENCOUNTER → 2018-07-03 | Outpatient (CLI) | payer BC, OTHER ==
[2018-07-03 14:15] LABS: IONIZED CALCIUM 4.9 MG/DL (4.5-5.3)
[2018-07-03 14:34] LABS: ANION GAP 10 MEQ/L (8-16); BLOOD UREA NITROGEN 14 MG/DL (7-18); CALCIUM LEVEL 9.4 MG/DL (8.5-10.1); CARBON DIOXIDE LEVEL 23 MEQ/L (21-32); CHLORIDE LEVEL 108 MEQ/L (98-107); CREATININE FOR GFR 0.72 MG/DL (0.55-1.30); GLOMERULAR FILTRATION RATE > 60.0 (>58); GLUCOSE, FASTING 84 MG/DL (70-100); MAGNESIUM LEVEL 1.9 MG/DL (1.8-2.4); PHOSPHORUS LEVEL 2.9 MG/DL (2.5-4.9); POTASSIUM SERUM 4.2 MEQ/L (3.5-5.1); SODIUM LEVEL 141 MEQ/L (136-145); URIC ACID 4.3 MG/DL (2.6-6.0)
[2018-07-03 14:39] LABS: PTH INTACT 35.9 PG/ML (18.5-88.0)
== END ==
LOC: M SMT 10:13
DX: Z87.442 Personal history of urinary calculi (principal)
CPT/HCPCS: 83735

== ENCOUNTER → 2019-03-22 | Outpatient (CLI) | payer BC ==
[~2019-03-22] MED LIST changes: +ASPI81TA85 PO; +ASTE0.15; +BREO1INH INH; +CEPALOZ8 PO; +CIPR500T3 PO; +D 50CAP3 PO; +ESCI10TA2 PO; +FLOM0.4C39 PO; +FLON1SPR; +GABA-843 PO; -GLYCOPYRROLATE INJ 0.2 MG/ML 2 ML VIAL As Ordered; +HYDR-3715 PO; -HYDROmorphone HCL 2 MG/ML 1ML VIAL (J1170) As Ordered; +KETO10TAB PO; -KETOROLAC 60 MG/2 ML VIAL (J1885) As Ordered; -LABETALOL HCL 100 MG/20 ML VIAL As Ordered; -LIDOCAINE 2% INJ 100 MG/5 ML SDV (FOR ANES.) As Ordered; +MICR1TAB18 PO; +MICROGESTIN; -MIDAZOLAM INJ 2 MG/2 ML VIAL (J2250) As Ordered; +MULTCAP8 PO; +NAPR-837 PO; -NEOSTIGMINE 10 MG/10 ML VIAL (J2710) As Ordered; +OMEP40CA2 PO; -ONDANSETRON 4MG/2ML VIAL (J2405) As Ordered; +PERC5TAB12 PO; +PERCOCET PO; +PROP20TA72 PO; -PROPOFOL 200 MG/20 ML VIAL As Ordered; +RELP40TA PO; -ROCURONIUM BROMIDE 50 MG/5 ML VIAL As Ordered; +TOPI25TA10 PO; +UNIS25TA3 PO; +VITA500046 PO; +ZYRT10CA5 PO; -dexameTHASONE 4 MG/ML 1ML VIAL (J1100) As Ordered; -fentaNYL 100 MCG/2 ML INJECTION (J3010) As Ordered
--- NOTE | 2019-03-22 11:08 | REPMRS ---
Patient History The patient states she had a clinical breast exam in 03/2019. Family history of prostate cancer at age 50 or over in paternal grandfather, prostate cancer at age 50 or over in maternal grandfather, prostate cancer at age 50 or over in maternal uncle. Benign stereotactic core biopsy of the right breast, April 02, 2003. Reductions of both breasts, 2002. Took hormonal contraceptives for 13 years. Digital Woman Screen Mammo: March 22, 2019 - Exam #: [id number] Bilateral CC and MLO view(s) were taken. Technologist: Rama Dyer, Technologist Prior study comparison: March 20, 2018, digital woman screen mammo performed at [facility]. March 18, 2017, digital woman screen mammo performed at [facility]. March 12, 2016, digital woman screen mammo performed at [facility]. March 02, 2013, digital woman screen mammo performed at [facility]. FINDINGS: There are scattered fibroglandular densities. A stable asymmetric opacity is again noted in the upper outer quadrant of the right breast unchanged from multiple prior mammograms dating back to March 02, 2013. There has been no change in the appearance of the mammogram from the prior studies. There is a mild amount of scattered fibroglandular density which is fairly symmetric. There is no interval development of dominant mass, architectural distortion, or clustered microcalcification suggestive of malignancy. 3-D tomosynthesis shows no additional findings. Assessment: BI-RADS/ACR category 2 mammogram. Benign Findings. Recommendation Routine screening mammogram of both breasts in 1 year (for women over age 40). This patient's Lifetime Breast Cancer RIsk is estimated at 8.6 %. This mammogram was interpreted with the aid of an FDA-approved computer-aided dectection system. Electronically Signed By: Julio Rider MD 03/22/19 [id number]
== END ==
LOC: M WHC 08:41
PROVIDERS: ATTEND Nurse Practitioner Women's Health
DX: Z12.31 Encounter for screening mammogram for malignant neoplasm of breast (principal)

== ENCOUNTER → 2019-03-27 | Outpatient (CLI) | payer BC ==
--- NOTE | 2019-03-28 08:50 | REP ---
Renal ultrasound for renal calculi: On the comparison CT of the abdomen pelvis dated 05/19/2018 there was a calculus in the proximal right ureter and the calculus in the proximal left ureter and bilateral hydronephrosis. There were also nonobstructive renal calculi bilaterally. On the ultrasound study today no renal calculi are identified. There is no hydronephrosis on the right on the left. No calculi are identified in the proximal right or left ureter. There are no renal masses. There are no renal cysts. Renal cortical echogenicity is normal bilaterally. The kidneys are normal size. The right kidney measures 11.2 x 5.2 x 5.8 cm. Left kidney measures 11.4 5.7 x 5.6 cm. Bladder: The bladder is nondistended and cannot be further evaluated. Impression: Negative renal ultrasound. No renal calculi are identified. There is no hydronephrosis. No renal masses or cysts. The bladder is nondistended and cannot be further evaluated. Electronically Signed by Kiel Mello MD 03/28/2019 08:42 A
== END ==
LOC: M RAD 17:30
PROVIDERS: ATTEND Internal Medicine Nephrology
DX: Z87.442 Personal history of urinary calculi (principal)

== ENCOUNTER → 2019-05-03 | Outpatient (REF) ==
[~2019-05-03] MED LIST changes: +ONDA4TAB6 PO
[2019-05-03 14:10] LABS: BASO # 0.1 10^3/uL (0.0-0.2); BASO % 0.7 % (0.0-1.0); EOS # 0.1 10^3/uL (0.0-0.50); EOS % 1.2 % (0.0-3.0); HEMATOCRIT 42.1 % (36.0-47.0); HEMOGLOBIN 14.1 g/dl (12.0-15.5); LYMPH # 3.3 10^3/uL (1.5-4.5); LYMPH % 40.4 % (24.0-44.0); MEAN CORPUSCULAR HEMOGLOBIN 31.9 pg (27.0-33.0); MEAN CORPUSCULAR HGB CONC 33.5 g/dl (32.0-36.5); MEAN CORPUSCULAR VOLUME 95.2 fl (80.0-96.0); MONO # 0.7 10^3/uL (0.0-0.8); MONO % 8.4 % (0.0-5.0); NEUTROPHILS % 48.9 % (36.0-66.0); PLATELET COUNT, AUTOMATED 330 10^3/uL (150-450); RED BLOOD COUNT 4.42 10^6/uL (4.00-5.40); WHITE BLOOD COUNT 8.2 10^3/uL (4.0-10.0)
== END ==
LOC: M LABSMT 13:15
PROVIDERS: ATTEND Allergy & Immunology Allergy
DX: J45.30 Mild persistent asthma, uncomplicated (principal)

== ENCOUNTER 2019-05-05 19:28 | Emergency (ER) | payer BC, OTHER ==
[~2019-05-05] VITALS: Ht 165.1 cm; Wt 86.4 kg
[~2019-05-05 19:28] MED LIST changes: -ONDA4TAB6 PO
[2019-05-05] MEDS ORDERED: KETOROLAC 30 MG/ML VIAL (J1885) IV ONE (20:00)
[2019-05-05] MEDS ORDERED: NS 1,000 ML IV ONE (20:00)
[2019-05-05 20:17] LABS: BASO # 0.1 10^3/uL (0.0-0.2); BASO % 0.6 % (0.0-1.0); EOS # 0.1 10^3/uL (0.0-0.50); EOS % 1.3 % (0.0-3.0); HEMATOCRIT 40.5 % (36.0-47.0); HEMOGLOBIN 13.9 g/dl (12.0-15.5); LYMPH # 4.2 10^3/uL (1.5-4.5); LYMPH % 43.9 % (24.0-44.0); MEAN CORPUSCULAR HGB CONC 34.3 g/dl (32.0-36.5); MEAN CORPUSCULAR VOLUME 93.3 fl (80.0-96.0); MONO # 0.9 10^3/uL (0.0-0.8); MONO % 9.7 % (0.0-5.0); NEUTROPHILS # 4.2 10^3/uL (1.8-7.7); PLATELET COUNT, AUTOMATED 296 10^3/uL (150-450); RED BLOOD COUNT 4.34 10^6/uL (4.00-5.40); WHITE BLOOD COUNT 9.5 10^3/uL (4.0-10.0)
[2019-05-05 20:40] LABS: ALBUMIN 3.9 GM/DL (3.2-5.2); BILIRUBIN,DIRECT 0.1 MG/DL (0.0-0.2); BILIRUBIN,TOTAL 0.6 MG/DL (0.2-1.0); TOTAL PROTEIN 7.4 GM/DL (6.4-8.2)
--- NOTE | 2019-05-05 21:50 | REPVR ---
EXAM: US Retroperitoneal Limited, Kidneys EXAM DATE/TIME: 05/05/2019 8:37 PM CLINICAL HISTORY: 44 years old, female; Abdominal pain; Flank; Right; Additional info: Right flank pain, eval for hydro/calc TECHNIQUE: Imaging protocol: Real-time ultrasound of the retroperitoneum with image documentation. Examination was focused on the kidneys. COMPARISON: RENAL US 03/27/2019 5:39 PM FINDINGS: Right kidney: The right kidney measures 11.1 cm in its cephalocaudad dimension and 5.5 x 4.8 cm in diameter. No mass or cyst. There is minimal right hydronephrosis. Left kidney: The left kidney measures 12.6 cm in its cephalocaudad dimension and 5.8 x 5.2 cm in diameter. No mass or cyst. Left hydronephrosis. Bladder: The urinary bladder appears normal measuring 8.4 x 10.5 x 7.9 cm. IMPRESSION: 1. Minimal bilateral hydronephrosis or pelvocaliectasis. 2. Otherwise negative renal sonogram Electronically signed by: Abisai Mueller On 05/05/2019 21:50:05 PM
[2019-05-05] MEDS ORDERED: ONDA4TAB6 PO (22:57)
[2019-05-05] MEDS ORDERED: FLOM0.4C39 PO (22:57)
[2019-05-05] MEDS ORDERED: KETO10TAB PO (22:57)
[2019-05-05] MEDS ORDERED: TAMSULOSIN 0.4 MG CAP PO ONE (23:00)
[2019-05-05 23:11] VITALS: BP 120/80
== END 2019-05-05 23:13 | disposition home or self-care (01) ==
LOC: M ED 19:28
DX: N13.39 Other hydronephrosis (principal); I10 Essential (primary) hypertension; M79.7 Fibromyalgia; Z79.899 Other long term (current) drug therapy; Z79.82 Long term (current) use of aspirin; Z88.8 Allergy status to other drugs, medicaments and biological substances
CPT/HCPCS: 76775; 80047; 80076; 81001; 83690; 85025; 96374; 99284; J1885

== ENCOUNTER → 2019-05-07 | Outpatient (REF) | payer OTHER ==
[~2019-05-07] MED LIST changes: +ONDA4TAB6 PO
[2019-05-07 13:40] LABS: FOLLICLE STIMULATING HORMONE 6.9 mIU/mL; LUTEINIZING HORMONE 5.9 mIU/mL
== END ==
LOC: M SFHCWAGY 08:31
PROVIDERS: ATTEND Nurse Practitioner Women's Health
DX: R23.2 Flushing (principal); R42 Dizziness and giddiness

== ENCOUNTER → 2019-05-22 | Outpatient (CLI) | payer OTHER ==
[2019-05-22 17:03] LABS: ALBUMIN 3.7 GM/DL (3.2-5.2); ALT/SGPT 19 U/L (12-78); BILIRUBIN,DIRECT < 0.1 MG/DL (0.0-0.2); BILIRUBIN,TOTAL 0.4 MG/DL (0.2-1.0); BLOOD UREA NITROGEN 14 MG/DL (7-18); CALCIUM LEVEL 9.5 MG/DL (8.5-10.1); CARBON DIOXIDE LEVEL 27 MEQ/L (21-32); CHLORIDE LEVEL 106 MEQ/L (98-107); CREATININE FOR GFR 0.73 MG/DL (0.55-1.30); GLOMERULAR FILTRATION RATE > 60.0 (>58); GLUCOSE, FASTING 90 MG/DL (70-100); POTASSIUM SERUM 4.9 MEQ/L (3.5-5.1); SODIUM LEVEL 138 MEQ/L (136-145); TOTAL PROTEIN 7.2 GM/DL (6.4-8.2)
[2019-05-22 17:09] LABS: BASO # 0.1 10^3/uL (0.0-0.2); BASO % 0.6 % (0.0-1.0); EOS # 0.1 10^3/uL (0.0-0.50); EOS % 1.2 % (0.0-3.0); HEMATOCRIT 40.6 % (36.0-47.0); HEMOGLOBIN 13.7 g/dl (12.0-15.5); LYMPH # 3.4 10^3/uL (1.5-4.5); LYMPH % 39.4 % (24.0-44.0); MEAN CORPUSCULAR HEMOGLOBIN 32.2 pg (27.0-33.0); MEAN CORPUSCULAR HGB CONC 33.7 g/dl (32.0-36.5); MEAN CORPUSCULAR VOLUME 95.5 fl (80.0-96.0); MONO # 0.7 10^3/uL (0.0-0.8); MONO % 7.5 % (0.0-5.0); NEUTROPHILS # 4.4 10^3/uL (1.8-7.7); NEUTROPHILS % 50.5 % (36.0-66.0); PLATELET COUNT, AUTOMATED 314 10^3/uL (150-450); RED BLOOD COUNT 4.25 10^6/uL (4.00-5.40); WHITE BLOOD COUNT 8.6 10^3/uL (4.0-10.0)
== END ==
LOC: M WUC 12:53
PROVIDERS: ATTEND Physician Assistant
DX: M54.5 Low back pain (principal); N13.30 Unspecified hydronephrosis

== ENCOUNTER → 2020-01-24 | Outpatient (CLI) | payer BC, OTHER ==
[~2020-01-24] MED LIST changes: -OMEP40CA2 PO; +OMEP40CA97 PO
== END ==
LOC: M LABSMTC 11:58
PROVIDERS: ATTEND Family Medicine
DX: Z11.59 Encounter for screening for other viral diseases (principal); Z20.828 Contact with and (suspected) exposure to other viral communicable diseases

== ENCOUNTER → 2020-02-02 | Outpatient (CLI) | payer BC, OTHER ==
--- NOTE | 2020-02-03 07:30 | REP ---
LEFT ANKLE, FIVE VIEWS: Five views of the left ankle performed. No fracture or dislocation is seen. Ankle mortise is anatomic. There is a tiny inferior calcaneal spur. IMPRESSION: Tiny inferior calcaneal spur. Otherwise negative exam. Electronically Signed by Kiel Linton MD 02/03/2020 04:51 P
== END ==
LOC: M WUC 15:16
PROVIDERS: ATTEND Physician Assistant
DX: M25.572 Pain in left ankle and joints of left foot (principal); M77.32 Calcaneal spur, left foot

== ENCOUNTER → 2020-03-24 | Outpatient (CLI) | payer BC ==
--- NOTE | 2020-03-24 16:33 | REPMRS ---
Patient History The patient states she has not had a clinical breast exam in over a year. Family history of prostate cancer at age 50 or over in paternal grandfather, prostate cancer at age 50 or over in maternal grandfather, prostate cancer at age 50 or over in maternal uncle. Benign stereotactic core biopsy of the right breast, April 02, 2003. Reductions of both breasts, 2002. Took hormonal contraceptives for 13 years. Digital Woman Screen Mammo: March 24, 2020 - Exam #: [id number] Bilateral CC and MLO view(s) were taken. Technologist: Marleny Olson, Technologist Prior study comparison: March 22, 2019, bilateral digital woman screen mammo performed at [facility]. March 20, 2018, digital woman screen mammo performed at [facility]. March 18, 2017, digital woman screen mammo performed at [facility]. March 02, 2013, digital woman screen mammo performed at [facility]. December 10, 2005, bilateral bilat screen digital mammo performed at [facility]. FINDINGS: There are scattered fibroglandular densities. The Volpara volumetric breast density category is:B. There is a large asymmetric a mass-like opacity in the right lateral breast again noted. This is seen on numerous prior studies and was biopsied in 2002. It is unchanged dating back as far as 2005, this being the oldest mammographic imaging, visible in the digital image measurement system. The patient is status post breast reduction. There has been no change in the appearance of the mammogram from the prior studies. There is a mild amount of scattered fibroglandular density which is fairly symmetric. There is no interval development of dominant mass, architectural distortion, or grouped microcalcification suggestive of malignancy. 3-D tomosynthesis shows no additional findings. Assessment: BI-RADS/ACR category 2 mammogram. Benign Findings. Recommendation Routine screening mammogram of both breasts in 1 year (for women over age 40). This patient's Lifetime Breast Cancer Risk is estimated at 8.7 %. This mammogram was interpreted with the aid of an FDA-approved computer-aided dectection system. Electronically Signed By: Julio Rider MD 03/24/20 2013
== END ==
LOC: M WHC 15:27
PROVIDERS: ATTEND Nurse Practitioner Women's Health
DX: Z12.31 Encounter for screening mammogram for malignant neoplasm of breast (principal); Z80.42 Family history of malignant neoplasm of prostate

== ENCOUNTER → 2020-07-10 | Outpatient (CLI) | payer BC, OTHER ==
[~2020-07-10] MED LIST changes: -ASPI81TA85 PO; +ASPI81TA86 PO
--- NOTE | 2020-07-16 07:58 | REP ---
URINARY TRACT SONOGRAPHY HISTORY: Kidney calculus. FINDINGS: Scanning at the level of the urinary bladder shows a largely empty urinary bladder, but no abnormality. Renal cortical echogenicity pattern is normal bilaterally. No hydronephrosis is seen on either side. No mass or cyst is seen. No calculus is observed sonographically. The right renal dimensions are 11.8 x 6.0 x 5.4 cm. Left renal sonography dimensions are 11.4 x 4.8 x 6.5 cm. IMPRESSION: Unremarkable urinary tract sonography. [facility]
== END ==
LOC: M RAD 11:42
PROVIDERS: ATTEND Internal Medicine Nephrology
DX: Z87.442 Personal history of urinary calculi (principal)

== ENCOUNTER → 2020-10-07 | Outpatient (REF) | payer OTHER | LOC: M LAB REF 17:37 | PROVIDERS: ATTEND Family Medicine | DX: J06.9 Acute upper respiratory infection, unspecified (principal) ==

== ENCOUNTER → 2020-10-19 | Outpatient (CLI) | payer OTHER | LOC: M LABSMTC 08:59 | PROVIDERS: ATTEND Pediatrics | DX: Z20.822 Contact with and (suspected) exposure to COVID-19 (principal) ==

== ENCOUNTER → 2020-12-08 | Outpatient (CLI) | payer SELFPAY ==
[~2020-12-08] MED LIST changes: +ESCI10TA16 PO; -ESCI10TA2 PO; +GABA-282 PO; -GABA-843 PO
== END ==
LOC: M LABSMTC 09:36
PROVIDERS: ATTEND Pediatrics
DX: Z11.52 Encounter for screening for COVID-19 (principal)

== ENCOUNTER → 2020-12-10 | Outpatient (REF) | payer OTHER | LOC: M LAB REF 18:58 | PROVIDERS: ATTEND Family Medicine | DX: J01.90 Acute sinusitis, unspecified (principal) ==

== ENCOUNTER → 2021-03-25 | Outpatient (CLI) | payer BC ==
--- NOTE | 2021-03-25 10:49 | REP ---
INDICATION: SHON SCR MAMMO/Z12.31. COMPARISON: 03/24/2020 as well as multiple other prior exams. TECHNIQUE: MLO and CC views bilateral breasts performed with tomosynthesis. FINDINGS: Mild to moderate scattered fibroglandular tissue is present. There is a lobulated 1 cm nodule posteriorly and inferiorly in the medial right breast. This represents a change when compared to multiple prior exams. Otherwise no new mass is seen bilaterally. No suspicious clusters of microcalcifications are seen. Normal appearing axillary lymph nodes are present bilaterally. The Volpara volumetric breast density pattern is B. IMPRESSION: BIRADS/ACR category 0, incomplete. Lobulated 1 cm nodule in the posterior inferomedial right breast. This is new when compared to multiple prior exams. Recommend spot compression views and ultrasound to further evaluate. This patient's Tyrer-Cuzick lifetime breast cancer risk assessment score is 8.7%. This mammogram was interpreted with the aid of an FDA-approved computer-aided detection system. The patient states she had a clinical breast exam in over 1 year ago. The patient letter being requested is M0. RECOMMENDATION: Recommend spot compression views and ultrasound right breast as discussed above. <Electronically signed by Kiel Linton > 03/25/21 [id number]
== END ==
LOC: M WHC 09:02
PROVIDERS: ATTEND Nurse Practitioner Women's Health
DX: Z12.31 Encounter for screening mammogram for malignant neoplasm of breast (principal); R92.8 Other abnormal and inconclusive findings on diagnostic imaging of breast

== ENCOUNTER → 2021-04-15 | Outpatient (REF) | payer BC, OTHER ==
[~2021-04-15] MED LIST changes: +OMEP40CA4 PO; -OMEP40CA97 PO
== END ==
LOC: M LAB REF 15:52
PROVIDERS: ATTEND Physician Assistant
DX: M79.7 Fibromyalgia (principal); R53.83 Other fatigue

== ENCOUNTER → 2021-04-27 | Outpatient (CLI) | payer BC ==
--- NOTE | 2021-04-27 10:42 | REP ---
INDICATION: ADDL VIEWS/RIGHT BREAST NODULE; RIGHT BREAST NODULE screening mammography from March 25, 2021 was BI-RADS category 0 incomplete because of nodular angus density medially in the right breast on the CC view.. COMPARISON: Comparison mammography March 25, 2021, March 24, 2020, and March 22, 2019. TECHNIQUE: Magnified focal spot-compression CC and MLO views of the right breast are obtained. A true mL view of the right breast was also obtained with 3D tomography. Targeted right breast sonography is carried out. This mammogram was interpreted with the aid of an FDA-approved computer-aided detection system. FINDINGS: Scattered fibroglandular elements are again seen. Magnified spot views in the craniocaudal projection confirm the presence of a somewhat nodular density in the medial aspect posterior 3rd right breast. On true mediolateral projection this appears to be at mid position, that is to say approximately 3 o'clock position in the right breast. This measures approximately 7 mm in greatest diameter. There is a stable somewhat asymmetric area of breast parenchymal density in the lateral aspect of the right breast unchanged from multiple prior studies. No other mammographic abnormality. The Volpara volumetric breast density pattern is b. Targeted ultrasound: Targeted right breast sonography is performed. From 2:00 to 4:00 position in the expected location of the mammographic abnormality, normal breast parenchyma is seen by ultrasound. Incidental note is made of 2 small simple pole cysts at 8 o'clock position measuring 0.7 and 0.9 cm in greatest diameter. This most likely corresponds to the stable mammographic opacity in the lateral aspect of the right breast. No sonographic correlate is seen for the new mammographic abnormality in the medial aspect of the right breast. IMPRESSION: BIRADS/ACR category 4 suspicious right breast mammographic findings.. No ultrasound correlate for mammographically visible angus density 3 o'clock position right breast. Histologic sampling recommended. This patient's Tyrer-Cuzick lifetime breast cancer risk assessment score is 8.7%. RECOMMENDATION: Stereotactic needle biopsy right breast with marker clip placement and post clip placement mammography.. The patient letter being requested is M4. <Electronically signed by Julio Rider > 04/27/21 1038
== END ==
LOC: M WHC 08:35
PROVIDERS: ATTEND Nurse Practitioner Women's Health
DX: Z12.31 Encounter for screening mammogram for malignant neoplasm of breast (principal); N63.10 Unspecified lump in the right breast, unspecified quadrant
CPT/HCPCS: 76642; 77065; G0279

== ENCOUNTER → 2021-05-04 | Outpatient (CLI) | payer BC, OTHER ==
[2021-05-04 10:33] LABS: BASO # 0.1 10^3/uL (0.0-0.2); BASO % 0.6 % (0.0-1.0); EOS # 0.1 10^3/uL (0.0-0.5); EOS % 1.1 % (0.0-3.0); HEMATOCRIT 38.9 % (36.0-47.0); HEMOGLOBIN 13.2 g/dl (12.0-15.5); LYMPH # 2.7 10^3/uL (1.5-5.0); LYMPH % 34.8 % (24.0-44.0); MEAN CORPUSCULAR HEMOGLOBIN 31.6 pg (27.0-33.0); MEAN CORPUSCULAR HGB CONC 33.9 g/dl (32.0-36.5); MEAN CORPUSCULAR VOLUME 93.1 fl (80.0-96.0); MONO # 0.7 10^3/uL (0.0-0.8); MONO % 9.3 % (2.0-8.0); NEUTROPHILS # 4.2 10^3/uL (1.5-8.5); NEUTROPHILS % 53.7 % (36.0-66.0); PLATELET COUNT, AUTOMATED 325 10^3/uL (150-450); RED BLOOD COUNT 4.18 10^6/uL (4.00-5.40); WHITE BLOOD COUNT 7.9 10^3/uL (4.0-10.0)
[2021-05-04 10:52] LABS: COLLAGEN EPINEPHRINE 139 SECONDS (74-162)
[2021-05-04 11:21] LABS: ALBUMIN 3.7 GM/DL (3.2-5.2); ALT/SGPT 22 U/L (12-78); BILIRUBIN,TOTAL 0.7 MG/DL (0.2-1.0); BLOOD UREA NITROGEN 17 MG/DL (7-18); CALCIUM LEVEL 8.7 MG/DL (8.5-10.1); CARBON DIOXIDE LEVEL 25 MEQ/L (21-32); CHLORIDE LEVEL 109 MEQ/L (98-107); CHOLESTEROL LEVEL 219 MG/DL (<200); CHOLESTEROL RISK RATIO 3.318 (<5); CREATININE FOR GFR 0.73 MG/DL (0.55-1.30); FREE T4 0.99 NG/DL (0.76-1.46); GLOMERULAR FILTRATION RATE > 60.0 (>58); GLUCOSE, FASTING 91 MG/DL (70-100); HDL CHOLESTEROL 66 MG/DL (>40); IRON (FE) 116 UG/DL (50-170); LDL CHOLESTEROL 128 MG/DL (<100); NON-HDL-C 153 MG/DL; SODIUM LEVEL 140 MEQ/L (136-145); THYROID STIMULATING HORMONE 0.811 uIU/ML (0.358-3.740); TOTAL IRON BINDING CAPACITY 352 UG/DL (250-450); TOTAL PROTEIN 6.7 GM/DL (6.4-8.2); TRIGLYCERIDES LEVEL 125 MG/DL (<150)
== END ==
LOC: M WUC 08:35
PROVIDERS: ATTEND Physician Assistant
DX: R23.3 Spontaneous ecchymoses (principal); E78.2 Mixed hyperlipidemia

== ENCOUNTER → 2021-05-11 | Outpatient (CLI) | payer BC, OTHER ==
[~2021-05-11] MED LIST changes: +E-Z-GAS II EFFERVESCENT PACKET (SODIUM BICARB./CITRIC ACID/SIMETHICONE) As Ordered ONE; +E-Z-HD 98% w/w 340GM SUSP BTL As Ordered ONE; +E-Z-PAQUE 96% w/w SUSP 176GM BTL As Ordered ONE
--- NOTE | 2021-05-11 20:00 | REP ---
INDICATION: HX OF HIATAL HERNIA, REFLUX. COMPARISON: None. TECHNIQUE: The procedure was performed under the direct supervision of Dr. Linton. The images were reviewed with Dr. Linton. Liquid barium and gas producing crystals were given in the erect position as well as liquid barium in the prone oblique position in order to perform a double contrast upper GI examination. A combination of fluoroscopy, spot films and last image hold technology was utilized. 1 minute of fluoro time was utilized for this procedure. FINDINGS: The wrecking crane engine operator film shows no organomegaly or pathological masses. The intestinal gas pattern is non-specific. The oral and pharyngeal stages of deglutition are unremarkable. Esophageal transport is prompt and efficient and there is no esophagitis, stricture, mucosal ring or hiatal hernia. Gastroesophageal reflux is not demonstrated on this examination. The stomach dykes are normally outlined. The rugal folds are smooth and regular. There is no gastritis neoplasm or ulcer disease. The duodenal dykes are normally outlined. The mucosal folds are smooth and regular. There is no duodenitis pancreatitis peptic ulcer disease or neoplasm. The visualized portion of the proximal small bowel appears normal in course and caliber. IMPRESSION: Essentially unremarkable double contrast upper GI examination. <Electronically signed by Reinier Ling > 05/11/21 [id number] <Electronically signed by Kiel Linton > 05/11/21 1956
== END ==
LOC: M RAD 07:40
PROVIDERS: ATTEND Physician Assistant
DX: K21.9 Gastro-esophageal reflux disease without esophagitis (principal)

== ENCOUNTER → 2021-06-09 | Outpatient (REF) | payer BC, OTHER ==
[~2021-06-09] MED LIST changes: -E-Z-GAS II EFFERVESCENT PACKET (SODIUM BICARB./CITRIC ACID/SIMETHICONE) As Ordered ONE; -E-Z-HD 98% w/w 340GM SUSP BTL As Ordered ONE; -E-Z-PAQUE 96% w/w SUSP 176GM BTL As Ordered ONE
== END ==
LOC: M LAB REF 12:02
PROVIDERS: ATTEND Internal Medicine Nephrology
DX: N18.2 Chronic kidney disease, stage 2 (mild) (principal)

== ENCOUNTER → 2021-07-16 | Outpatient (REF) | payer BC, OTHER | LOC: M LAB REF 22:15 | PROVIDERS: ATTEND Family Medicine | DX: J20.9 Acute bronchitis, unspecified (principal) ==

== ENCOUNTER → 2021-07-27 | Outpatient (CLI) | payer BC, OTHER ==
--- NOTE | 2021-07-27 19:19 | REP ---
INDICATION: PNEUMONIA, UNSPECIFIED ORGANISM COMPARISON: 11/19/2017 TECHNIQUE: PA and lateral. FINDINGS: The mediastinum and cardiac silhouette are normal. The lung blank are clear and without acute consolidation, effusion, or pneumothorax. The skeletal structures are intact and normal. IMPRESSION: No acute cardiopulmonary process. <Electronically signed by Michelet Ortiz > 07/27/21 1916
== END ==
LOC: M RAD 17:07
PROVIDERS: ATTEND Family Medicine
DX: J18.9 Pneumonia, unspecified organism (principal)

== ENCOUNTER → 2022-03-09 | Outpatient (REF) | payer BC, OTHER ==
[~2022-03-09] MED LIST changes: +BENZ1LOZ9 PO; -CEPALOZ8 PO; -MICR1TAB18 PO; +NORE1TAB94 PO
== END ==
LOC: M LAB REF 16:54
PROVIDERS: ATTEND Nurse Practitioner Adult Health
DX: J06.9 Acute upper respiratory infection, unspecified (principal)

== ENCOUNTER → 2022-03-31 | Outpatient (REF) | payer OTHER ==
[2022-03-31 19:05] LABS: APPEARANCE, URINE MANUAL TURBID (CLEAR); COLOR, URINE MANUAL BROWN (YELLOW)
[2022-03-31 19:17] LABS: BILIRUBIN, URINE MANUAL NEGATIVE (NEGATIVE); GLUCOSE, URINE (UA) MANUAL NEGATIVE (NEGATIVE); KETONE, URINE MANUAL NEGATIVE (NEGATIVE); LEUKOCYTE ESTERASE, URINE MAN TRACE (NEGATIVE); NITRITE, URINE MANUAL POSITIVE (NEGATIVE); SPECIFIC GRAVITY,URINE MANUAL 1.025 (1.002-1.035); UROBILINOGEN, URINE MANUAL NORMAL (NORMAL)
[2022-03-31 19:18] LABS: BLOOD URINE MANUAL POSITIVE (NEGATIVE); PROTEIN, URINE MANUAL 1+ mg/dL (NEGATIVE)
[2022-03-31 19:20] LABS: BACTERIA, URINE SMALL AMOUNT; CALCIUM OXALATE CRYSTALS,URINE SMALL AMOUNT /hpf; RBC, URINE TNTC /hpf (0-3); SQUAMOUS EPITHELIAL CELL URINE SMALL AMOUNT /hpf (SMALL AMT); WBC, URINE 20-30 /hpf (0-3)
[2022-03-31 19:21] LABS: AMORPHOUS SEDIMENT, URINE MOD AMOUNT (NEGATIVE); HYALINE CAST, URINE NONE SEEN /lpf (0-1)
== END ==
LOC: M LAB REF 16:20
PROVIDERS: ATTEND Physician Assistant
DX: N39.0 Urinary tract infection, site not specified (principal)

== ENCOUNTER → 2022-04-07 | Outpatient (REF) | payer OTHER ==
[2022-04-07 18:45] LABS: APPEARANCE, URINE HAZY (CLEAR); BACTERIA, URINE AUTO NEGATIVE (NEGATIVE); BILIRUBIN, URINE AUTO NEGATIVE (NEGATIVE); BLOOD, URINE BLOOD 3+ (NEGATIVE); CALCIUM OXALATE CRYSTALS MODERATE; COLOR, URINE YELLOW (YELLOW); GLUCOSE, URINE (UA) AUTO NEGATIVE (NEGATIVE); KETONE, URINE AUTO NEGATIVE (NEGATIVE); LEUKOCYTE ESTERASE, URINE AUTO NEGATIVE (NEGATIVE); MUCUS, URINE SMALL (NEGATIVE); NITRITE, URINE AUTO NEGATIVE (NEGATIVE); PROTEIN, URINE AUTO 1+ mg/dL (NEGATIVE); RBC, URINE AUTO 170 /HPF (0-3); SPECIFIC GRAVITY URINE AUTO 1.018 (1.002-1.035); SQUAMOUS EPITHELIAL CELL UR AU 1 /HPF (0-6); UROBILINOGEN, URINE AUTO 0.2 mg/dL (0.0-2.0); WBC, URINE AUTO 9 /HPF (0-3)
== END ==
LOC: M LAB REF 17:02
PROVIDERS: ATTEND Nurse Practitioner Adult Health
DX: N39.0 Urinary tract infection, site not specified (principal)

== ENCOUNTER 2022-04-18 02:22 | Emergency (ER) | payer BC, OTHER ==
[~2022-04-18] VITALS: Ht 165.1 cm; Wt 79.8 kg
[2022-04-18 02:23] VITALS: BP 130/90
== END 2022-04-18 05:58 | disposition left against medical advice (07) ==
LOC: M ED 02:22
DX: Z53.29 Procedure and treatment not carried out because of patient's decision for other reasons (principal)

== ENCOUNTER → 2022-04-20 | Outpatient (CLI) | payer BC, OTHER | LOC: M RAD 08:02 | PROVIDERS: ATTEND Nurse Practitioner Adult Health | DX: R01.1 Cardiac murmur, unspecified (principal); N20.0 Calculus of kidney ==

== ENCOUNTER → 2022-04-27 | Outpatient (CLI) | payer BC, OTHER ==
[2022-04-27 10:04] LABS: BASO # 0.1 10^3/uL (0.0-0.2); BASO % 0.9 % (0.0-1.0); EOS # 0.1 10^3/uL (0.0-0.5); EOS % 1.3 % (0.0-3.0); HEMATOCRIT 40.4 % (36.0-47.0); HEMOGLOBIN 13.5 g/dl (12.0-15.5); LYMPH # 2.6 10^3/uL (1.5-5.0); LYMPH % 38.3 % (24.0-44.0); MEAN CORPUSCULAR HEMOGLOBIN 31.3 pg (27.0-33.0); MEAN CORPUSCULAR HGB CONC 33.4 g/dl (32.0-36.5); MEAN CORPUSCULAR VOLUME 93.5 fl (80.0-96.0); MONO # 0.6 10^3/uL (0.0-0.8); MONO % 8.8 % (2.0-8.0); NEUTROPHILS # 3.4 10^3/uL (1.5-8.5); NEUTROPHILS % 50.3 % (36.0-66.0); PLATELET COUNT, AUTOMATED 380 10^3/uL (150-450); RED BLOOD COUNT 4.32 10^6/uL (4.00-5.40); WHITE BLOOD COUNT 6.8 10^3/uL (4.0-10.0)
[2022-04-27 10:30] LABS: ALBUMIN 3.9 GM/DL (3.2-5.2); ALT/SGPT 18 U/L (12-78); BILIRUBIN,TOTAL 0.9 MG/DL (0.2-1.0); BLOOD UREA NITROGEN 15 MG/DL (7-18); CALCIUM LEVEL 9.2 MG/DL (8.5-10.1); CARBON DIOXIDE LEVEL 26 MEQ/L (21-32); CHLORIDE LEVEL 109 MEQ/L (98-107); CHOLESTEROL LEVEL 250 MG/DL (<200); CHOLESTEROL RISK RATIO 3.378 (<5); CREATININE FOR GFR 0.79 MG/DL (0.55-1.30); FREE T4 0.91 NG/DL (0.76-1.46); GLOMERULAR FILTRATION RATE > 60.0 (>58); GLUCOSE, FASTING 93 MG/DL (70-100); HDL CHOLESTEROL 74 MG/DL (>40); LDL CHOLESTEROL 149 MG/DL (<100); NON-HDL-C 176 MG/DL; POTASSIUM SERUM 4.1 MEQ/L (3.5-5.1); SODIUM LEVEL 142 MEQ/L (136-145); TOTAL PROTEIN 7.1 GM/DL (6.4-8.2); TRIGLYCERIDES LEVEL 134 MG/DL (<150)
[2022-04-27 10:55] LABS: TOTAL 25(OH) VITAMIN D 57.1 NG/ML (30.0-100.0)
== END ==
LOC: M WUC 08:12
PROVIDERS: ATTEND Nurse Practitioner Adult Health
DX: I10 Essential (primary) hypertension (principal); E66.3 Overweight; M79.7 Fibromyalgia

== ENCOUNTER → 2022-06-18 | Outpatient (CLI) | payer BC, OTHER ==
[~2022-06-18] MED LIST changes: +ISOVUE-370 76% 100ML VIAL As Ordered ONE
== END ==
LOC: M RAD 16:04
PROVIDERS: ATTEND Urology
DX: N20.0 Calculus of kidney (principal)
CPT/HCPCS: 74178; Q9967

== ENCOUNTER → 2022-10-19 | Outpatient (CLI) | payer OTHER ==
[~2022-10-19] MED LIST changes: -ISOVUE-370 76% 100ML VIAL As Ordered ONE
[2022-10-19 13:46] LABS: LUTEINIZING HORMONE 6.6 mIU/ML
== END ==
LOC: M WUC 08:40
PROVIDERS: ATTEND Nurse Practitioner Adult Health
DX: N95.8 Other specified menopausal and perimenopausal disorders (principal)

== ENCOUNTER → 2022-10-19 | Outpatient (CLI) | payer OTHER ==
[2022-10-19 13:11] LABS: BASO # 0.1 10^3/uL (0.0-0.2); BASO % 0.7 % (0.0-1.0); EOS # 0.1 10^3/uL (0.0-0.5); EOS % 2.1 % (0.0-3.0); HEMATOCRIT 37.5 % (36.0-47.0); HEMOGLOBIN 12.3 g/dl (12.0-15.5); LYMPH % 29.9 % (24.0-44.0); MEAN CORPUSCULAR HEMOGLOBIN 30.8 pg (27.0-33.0); MEAN CORPUSCULAR HGB CONC 32.8 g/dl (32.0-36.5); MEAN CORPUSCULAR VOLUME 93.8 fl (80.0-96.0); MONO # 0.8 10^3/uL (0.0-0.8); MONO % 11.2 % (2.0-8.0); NEUTROPHILS # 3.8 10^3/uL (1.5-8.5); NEUTROPHILS % 55.5 % (36.0-66.0); PLATELET COUNT, AUTOMATED 314 10^3/uL (150-450); WHITE BLOOD COUNT 6.8 10^3/uL (4.0-10.0)
[2022-10-19 13:19] LABS: ERYTHROCYTE SEDIMENTATION RATE 8 mm/hr (0-20)
[2022-10-19 13:42] LABS: ALBUMIN 3.6 G/DL (3.2-5.2); ALKALINE PHOSPHATASE 64 U/L (46-116); ALT/SGPT 16 U/L (7.0-40); AST/SGOT 14 U/L (<34); BILIRUBIN,TOTAL 0.4 MG/DL (0.3-1.2); BLOOD UREA NITROGEN 15 MG/DL (9-23); CALCIUM LEVEL 9.2 MG/DL (8.5-10.1); CARBON DIOXIDE LEVEL 28 MMOL/L (20-31); CHLORIDE LEVEL 105 MMOL/L (98-107); CREATININE FOR GFR 0.69 MG/DL (0.55-1.30); GLOMERULAR FILTRATION RATE > 60.0 (>58); GLUCOSE, FASTING 90 MG/DL (60-100); POTASSIUM SERUM 4.2 MMOL/L (3.5-5.1); SODIUM LEVEL 139 MMOL/L (136-145); TOTAL PROTEIN 6.4 G/DL (5.7-8.2)
== END ==
LOC: M WUC 08:44
DX: M19.90 Unspecified osteoarthritis, unspecified site (principal); Z79.899 Other long term (current) drug therapy

== ENCOUNTER → 2023-01-24 | Outpatient (CLI) | payer OTHER ==
[2023-01-24 17:55] LABS: ALBUMIN 3.8 G/DL (3.2-5.2); ALKALINE PHOSPHATASE 51 U/L (46-116); ALT/SGPT 15 U/L (7.0-40); AST/SGOT 23 U/L (<34); BILIRUBIN,TOTAL 0.5 MG/DL (0.3-1.2); BLOOD UREA NITROGEN 16 MG/DL (9-23); CALCIUM LEVEL 8.7 MG/DL (8.5-10.1); CARBON DIOXIDE LEVEL 28 MMOL/L (20-31); CHLORIDE LEVEL 106 MMOL/L (98-107); CREATININE FOR GFR 0.86 MG/DL (0.55-1.30); GLOMERULAR FILTRATION RATE > 60.0 (>58); GLUCOSE, FASTING 75 MG/DL (60-100); POTASSIUM SERUM 4.2 MMOL/L (3.5-5.1); SODIUM LEVEL 140 MMOL/L (136-145); TOTAL PROTEIN 6.5 G/DL (5.7-8.2)
[2023-01-24 17:56] LABS: BASO # 0.1 10^3/uL (0.0-0.2); BASO % 0.6 % (0.0-1.0); EOS # 0.1 10^3/uL (0.0-0.5); HEMATOCRIT 36.3 % (36.0-47.0); HEMOGLOBIN 12.4 g/dl (12.0-15.5); LYMPH # 3.1 10^3/uL (1.5-5.0); LYMPH % 37.2 % (24.0-44.0); MEAN CORPUSCULAR HEMOGLOBIN 31.6 pg (27.0-33.0); MEAN CORPUSCULAR HGB CONC 34.2 g/dl (32.0-36.5); MEAN CORPUSCULAR VOLUME 92.6 fl (80.0-96.0); MONO # 0.7 10^3/uL (0.0-0.8); MONO % 8.4 % (2.0-8.0); NEUTROPHILS # 4.4 10^3/uL (1.5-8.5); NEUTROPHILS % 52.4 % (36.0-66.0); PLATELET COUNT, AUTOMATED 347 10^3/uL (150-450); RED BLOOD COUNT 3.92 10^6/uL (4.00-5.40); WHITE BLOOD COUNT 8.4 10^3/uL (4.0-10.0)
[2023-01-24 18:23] LABS: ERYTHROCYTE SEDIMENTATION RATE 8 mm/hr (0-20)
== END ==
LOC: M WUC 14:06
PROVIDERS: ATTEND Nurse Practitioner Family
DX: M19.90 Unspecified osteoarthritis, unspecified site (principal); Z79.899 Other long term (current) drug therapy

== ENCOUNTER → 2023-02-01 | Outpatient (CLI) | payer OTHER | LOC: M WUC 14:12 | PROVIDERS: ATTEND Nurse Practitioner Family | DX: M17.0 Bilateral primary osteoarthritis of knee (principal) ==

== ENCOUNTER → 2023-02-07 | Outpatient (REF) | payer OTHER ==
[2023-02-07 18:20] LABS: APPEARANCE, URINE CLOUDY (CLEAR); BACTERIA, URINE AUTO 1+ (NEGATIVE); BILIRUBIN, URINE AUTO NEGATIVE (NEGATIVE); BLOOD, URINE BLOOD NEGATIVE (NEGATIVE); CALCIUM OXALATE CRYSTALS MODERATE; COLOR, URINE YELLOW (YELLOW); GLUCOSE, URINE (UA) AUTO NEGATIVE (NEGATIVE); KETONE, URINE AUTO TRACE mg/dL (NEGATIVE); LEUKOCYTE ESTERASE, URINE AUTO 3+ (NEGATIVE); MUCUS, URINE SMALL (NEGATIVE); NITRITE, URINE AUTO NEGATIVE (NEGATIVE); PROTEIN, URINE AUTO 2+ mg/dL (NEGATIVE); RBC, URINE AUTO 4 /HPF (0-3); RENAL EPITHELIAL CELLS 18 /HPF; SPECIFIC GRAVITY URINE AUTO 1.025 (1.002-1.035); SQUAMOUS EPITHELIAL CELL UR AU 10 /HPF (0-6); UROBILINOGEN, URINE AUTO 0.2 mg/dL (0.0-2.0); WBC, URINE AUTO TNTC /HPF (0-3)
== END ==
LOC: M LAB REF 16:34
PROVIDERS: ATTEND Physician Assistant Medical
DX: N39.0 Urinary tract infection, site not specified (principal)

== ENCOUNTER → 2023-04-02 | Outpatient (CLI) | payer OTHER ==
[2023-04-02 09:29] LABS: BASO # 0.1 10^3/uL (0.0-0.2); BASO % 0.8 % (0.0-1.0); EOS # 0.1 10^3/uL (0.0-0.5); EOS % 1.5 % (0.0-3.0); HEMATOCRIT 38.2 % (36.0-47.0); HEMOGLOBIN 12.7 g/dl (12.0-15.5); LYMPH # 2.7 10^3/uL (1.5-5.0); MEAN CORPUSCULAR HEMOGLOBIN 31.1 pg (27.0-33.0); MEAN CORPUSCULAR HGB CONC 33.2 g/dl (32.0-36.5); MEAN CORPUSCULAR VOLUME 93.6 fl (80.0-96.0); MONO # 0.6 10^3/uL (0.0-0.8); MONO % 8.3 % (2.0-8.0); NEUTROPHILS # 3.2 10^3/uL (1.5-8.5); NEUTROPHILS % 47.9 % (36.0-66.0); PLATELET COUNT, AUTOMATED 280 10^3/uL (150-450); RED BLOOD COUNT 4.08 10^6/uL (4.00-5.40); WHITE BLOOD COUNT 6.6 10^3/uL (4.0-10.0)
[2023-04-02 09:51] LABS: HEMOGLOBIN A1c 5.1 % (4.0-6.0)
[2023-04-02 10:00] LABS: ALBUMIN 3.7 G/DL (3.2-5.2); ALKALINE PHOSPHATASE 50 U/L (46-116); ALT/SGPT 17 U/L (7.0-40); AST/SGOT 11 U/L (<34); BILIRUBIN,TOTAL 0.5 MG/DL (0.3-1.2); BLOOD UREA NITROGEN 11 MG/DL (9-23); CALCIUM LEVEL 8.5 MG/DL (8.5-10.1); CARBON DIOXIDE LEVEL 25 MMOL/L (20-31); CHLORIDE LEVEL 109 MMOL/L (98-107); CHOLESTEROL LEVEL 193 MG/DL (<200); CHOLESTEROL RISK RATIO 3.02 (<5); CREATININE FOR GFR 0.63 MG/DL (0.55-1.30); GLOMERULAR FILTRATION RATE > 60.0 (>51); GLUCOSE, FASTING 99 MG/DL (60-100); HDL CHOLESTEROL 63.9 MG/DL (>40); LDL CHOLESTEROL 111.9 MG/DL (<100); NON-HDL-C 129.1 MG/DL; POTASSIUM SERUM 4.3 MMOL/L (3.5-5.1); SODIUM LEVEL 139 MMOL/L (136-145); TOTAL PROTEIN 6.3 G/DL (5.7-8.2); TRIGLYCERIDES LEVEL 86 MG/DL (<150)
[2023-04-02 10:01] LABS: FREE T4 0.86 NG/DL (0.89-1.76)
[2023-04-02 10:02] LABS: THYROID STIMULATING HORMONE 1.046 uIU/ML (0.55-4.78)
== END ==
LOC: M LAB 08:50
PROVIDERS: ATTEND Nurse Practitioner Adult Health
DX: F41.1 Generalized anxiety disorder (principal); E66.9 Obesity, unspecified

== ENCOUNTER → 2023-05-24 | Outpatient (CLI) | payer OTHER | LOC: M RAD 13:54 | PROVIDERS: ATTEND Physician Assistant | DX: M79.671 Pain in right foot (principal) ==

== ENCOUNTER → 2023-06-24 | Outpatient (CLI) | payer OTHER | LOC: M RAD 15:08 | PROVIDERS: ATTEND Physician Assistant | DX: R06.00 Dyspnea, unspecified (principal) ==

== ENCOUNTER 2023-07-11 05:20 | Emergency (ER) | payer OTHER ==
[~2023-07-11] VITALS: Ht 162.6 cm; Wt 97.7 kg
[2023-07-11] MEDS ORDERED: ONDANSETRON 4MG 2ML VIAL As Ordered ONE (05:50)
[2023-07-11] MEDS ORDERED: KETOROLAC 30 MG/ML 1ML VIAL As Ordered ONE (05:50)
[2023-07-11] MEDS ORDERED: ONDANSETRON 4MG 2ML VIAL IV ONE ×2 (05:55)
[2023-07-11] MEDS: KETOROLAC 30 MG/ML 1ML VIAL IV ONE ×2 (05:55→05:56)
[2023-07-11] MEDS ORDERED: NS 1,000 ML IV ONE (05:55)
[2023-07-11] MEDS ORDERED: MORPHINE 4 MG/ML 1ML VIAL IV ONE (06:05)
[2023-07-11 06:11] LABS: BASO # 0.1 10^3/uL (0.0-0.2); BASO % 0.6 % (0.0-1.0); EOS # 0.1 10^3/uL (0.0-0.5); EOS % 1.4 % (0.0-3.0); HEMOGLOBIN 12.6 g/dl (12.0-15.5); LYMPH # 3.1 10^3/uL (1.5-5.0); LYMPH % 38.1 % (24.0-44.0); MEAN CORPUSCULAR HEMOGLOBIN 31.6 pg (27.0-33.0); MEAN CORPUSCULAR HGB CONC 34.1 g/dl (32.0-36.5); MEAN CORPUSCULAR VOLUME 92.7 fl (80.0-96.0); MONO # 0.8 10^3/uL (0.0-0.8); MONO % 9.6 % (2.0-8.0); NEUTROPHILS % 49.6 % (36.0-66.0); PLATELET COUNT, AUTOMATED 328 10^3/uL (150-450); RED BLOOD COUNT 3.99 10^6/uL (4.00-5.40)
[2023-07-11 06:26] LABS: LIPASE 75 U/L (12-53)
[2023-07-11 06:28] LABS: ALBUMIN 3.8 G/DL (3.2-5.2); ALKALINE PHOSPHATASE 56 U/L (46-116); ALT/SGPT 25 U/L (7.0-40); AST/SGOT 26 U/L (<34); BILIRUBIN,DIRECT 0.1 MG/DL (<0.4); BILIRUBIN,TOTAL 0.6 MG/DL (0.3-1.2); BLOOD UREA NITROGEN 19 MG/DL (9-23); CALCIUM LEVEL 8.8 MG/DL (8.5-10.1); CARBON DIOXIDE LEVEL 26 MMOL/L (20-31); CHLORIDE LEVEL 110 MMOL/L (98-107); CREATININE FOR GFR 0.71 MG/DL (0.55-1.30); GLOMERULAR FILTRATION RATE > 60.0 (>51); GLUCOSE, FASTING 99 MG/DL (60-100); POTASSIUM SERUM 4.5 MMOL/L (3.5-5.1); SODIUM LEVEL 143 MMOL/L (136-145); TOTAL PROTEIN 6.7 G/DL (5.7-8.2)
[2023-07-11] MEDS ORDERED: KETOROLAC 30 MG/ML 1ML VIAL IV ONE (07:00)
[2023-07-11 07:15] VITALS: TEMP 97
[2023-07-11 07:25] LABS: RSV AMPLIFICATION NEGATIVE (NEGATIVE)
[2023-07-11] MEDS ORDERED: PERC5TAB12 PO (09:36)
[2023-07-11 09:47] VITALS: BP 114/57; O2SAT 99
== END 2023-07-11 09:54 | disposition home or self-care (01) ==
LOC: M ED 05:20
DX: N21.1 Calculus in urethra (principal); M79.7 Fibromyalgia; K21.9 Gastro-esophageal reflux disease without esophagitis; Z79.899 Other long term (current) drug therapy; Z88.8 Allergy status to other drugs, medicaments and biological substances
CPT/HCPCS: 74176; 80047; 80048; 80076; 81001; 83690; 85025; 87086; 87631; 93041; 96361; 96374; 96375; 99285; J1885; J2405

== ENCOUNTER 2023-08-07 15:23 | Emergency (ER) | payer OTHER ==
[~2023-08-07] VITALS: Ht 165.1 cm; Wt 96.9 kg
[2023-08-07 15:23] VITALS: TEMP 98.1
[2023-08-07] MEDS ORDERED: HYDR200T46 (16:05)
[2023-08-07] MEDS ORDERED: POTA10808 (16:05)
[2023-08-07 16:08] LABS: BASO # 0.1 10^3/uL (0.0-0.2); BASO % 0.7 % (0.0-1.0); EOS # 0.1 10^3/uL (0.0-0.5); EOS % 1.1 % (0.0-3.0); HEMATOCRIT 37.7 % (36.0-47.0); HEMOGLOBIN 13.1 g/dl (12.0-15.5); LYMPH # 2.8 10^3/uL (1.5-5.0); LYMPH % 32.8 % (24.0-44.0); MEAN CORPUSCULAR HEMOGLOBIN 31.5 pg (27.0-33.0); MEAN CORPUSCULAR HGB CONC 34.7 g/dl (32.0-36.5); MEAN CORPUSCULAR VOLUME 90.6 fl (80.0-96.0); MONO # 0.6 10^3/uL (0.0-0.8); MONO % 6.9 % (2.0-8.0); NEUTROPHILS # 4.9 10^3/uL (1.5-8.5); NEUTROPHILS % 57.9 % (36.0-66.0); PLATELET COUNT, AUTOMATED 327 10^3/uL (150-450); RED BLOOD COUNT 4.16 10^6/uL (4.00-5.40); WHITE BLOOD COUNT 8.5 10^3/uL (4.0-10.0)
[2023-08-07 16:31] LABS: LIPASE 52 U/L (12-53)
[2023-08-07 16:33] LABS: ALBUMIN 3.8 G/DL (3.2-5.2); ALKALINE PHOSPHATASE 54 U/L (46-116); ALT/SGPT 19 U/L (7.0-40); AST/SGOT 26 U/L (<34); BILIRUBIN,DIRECT < 0.1 MG/DL (<0.4); BILIRUBIN,TOTAL 0.4 MG/DL (0.3-1.2); BLOOD UREA NITROGEN 15 MG/DL (9-23); CALCIUM LEVEL 9.3 MG/DL (8.5-10.1); CARBON DIOXIDE LEVEL 25 MMOL/L (20-31); CHLORIDE LEVEL 105 MMOL/L (98-107); CK-MB VALUE MASS < 1.0 NG/ML (<3.6); CREATININE FOR GFR 0.66 MG/DL (0.55-1.30); GLOMERULAR FILTRATION RATE > 60.0 (>51); GLUCOSE, FASTING 100 MG/DL (60-100); MAGNESIUM LEVEL 1.8 MG/DL (1.8-2.4); POTASSIUM SERUM 4.3 MMOL/L (3.5-5.1); SODIUM LEVEL 140 MMOL/L (136-145)
[2023-08-07 16:34] LABS: T UPTAKE 28.8 % (22.5-37.0); THYROID STIMULATING HORMONE 1.669 uIU/ML (0.55-4.78)
[2023-08-07 16:35] LABS: THYROXINE (T4) 10.5 UG/DL (4.5-10.9)
[2023-08-07 16:36] LABS: CPK CREATINE PHOSPHOKINASE 101 U/L (34-145); MB/CK RELATIVE INDEX 0.99 (< OR =4)
[2023-08-07 17:33] LABS: CK-MB VALUE MASS < 1.0 NG/ML (<3.6)
[2023-08-07 17:34] LABS: CPK CREATINE PHOSPHOKINASE 89 U/L (34-145); MB/CK RELATIVE INDEX 1.12 (< OR =4)
[2023-08-07] MEDS ORDERED: ISOVUE-370 76% 100ML VIAL As Ordered ONE (17:49)
[2023-08-07 19:45] VITALS: BP 124/69; O2SAT 98
== END 2023-08-07 20:07 | disposition home or self-care (01) ==
LOC: M ED 15:23
DX: R07.89 Other chest pain (principal); R00.2 Palpitations; M79.7 Fibromyalgia; Z87.442 Personal history of urinary calculi; Z82.49 Family history of ischemic heart disease and other diseases of the circulatory system; Z79.899 Other long term (current) drug therapy; Z88.8 Allergy status to other drugs, medicaments and biological substances
CPT/HCPCS: 71045; 71275; 80048; 80076; 82550; 82553; 83690; 83735; 84436; 84443; 84479; 85025; 93005; 93041; 94760; 99285; Q9967

== ENCOUNTER → 2023-08-31 | Outpatient (CLI) | payer OTHER ==
[~2023-08-31] MED LIST changes: +HYDR200T46; +POTA10808
== END ==
LOC: M PLAIMG 08:32
PROVIDERS: ATTEND Urology
DX: N20.1 Calculus of ureter (principal)

== ENCOUNTER → 2023-09-24 | Outpatient (CLI) | payer OTHER ==
[~2023-09-24] MED LIST changes: +EMGA120I; +FLUT1BLS17; -HYDR200T46; +HYDR200T46 PO; +LEVOTAB10 PO; +PHEN-239 PO; -POTA10808; +POTA10808 PO; +PROP80CA PO; +VITA100093 PO
[2023-09-24 09:46] LABS: CHOLESTEROL RISK RATIO 3.17 (<5); HDL CHOLESTEROL 58.2 MG/DL (>40); NON-HDL-C 126.8 MG/DL
[2023-09-24 09:48] LABS: FREE T4 1.19 NG/DL (0.89-1.76); THYROID STIMULATING HORMONE 1.347 uIU/ML (0.55-4.78)
== END ==
LOC: M LAB 08:41
PROVIDERS: ATTEND Physician Assistant
DX: R94.6 Abnormal results of thyroid function studies (principal); E75.6 Lipid storage disorder, unspecified

== ENCOUNTER → 2023-09-24 | Outpatient (CLI) | payer OTHER ==
[2023-09-24 09:13] LABS: HEMATOCRIT 35.8 % (36.0-47.0); HEMOGLOBIN 12.5 g/dl (12.0-15.5); MEAN CORPUSCULAR HEMOGLOBIN 31.7 pg (27.0-33.0); MEAN CORPUSCULAR HGB CONC 34.9 g/dl (32.0-36.5); MEAN CORPUSCULAR VOLUME 90.9 fl (80.0-96.0); PLATELET COUNT, AUTOMATED 281 10^3/uL (150-450); RED BLOOD COUNT 3.94 10^6/uL (4.00-5.40); WHITE BLOOD COUNT 7.8 10^3/uL (4.0-10.0)
[2023-09-24 09:46] LABS: ALBUMIN 3.4 G/DL (3.2-5.2); ALKALINE PHOSPHATASE 61 U/L (46-116); ALT/SGPT 15 U/L (7.0-40); AST/SGOT 9 U/L (<34); BILIRUBIN,TOTAL 0.5 MG/DL (0.3-1.2); BLOOD UREA NITROGEN 14 MG/DL (9-23); CALCIUM LEVEL 8.6 MG/DL (8.5-10.1); CARBON DIOXIDE LEVEL 27 MMOL/L (20-31); CHLORIDE LEVEL 108 MMOL/L (98-107); CREATININE FOR GFR 0.72 MG/DL (0.55-1.30); GLOMERULAR FILTRATION RATE > 60.0 (>51); GLUCOSE, FASTING 96 MG/DL (60-100); POTASSIUM SERUM 4.4 MMOL/L (3.5-5.1); SODIUM LEVEL 140 MMOL/L (136-145); TOTAL PROTEIN 6.2 G/DL (5.7-8.2)
== END ==
LOC: M LAB 08:39
PROVIDERS: ATTEND Urology
DX: N20.1 Calculus of ureter (principal)

== ENCOUNTER → 2023-09-27 | Outpatient (REF) | payer OTHER | LOC: M SMT 16:52 | PROVIDERS: ATTEND Urology | DX: N20.1 Calculus of ureter (principal) ==

== ENCOUNTER 2023-10-05 08:26 | Emergency (ER) | payer OTHER ==
[~2023-10-05] VITALS: Ht 165.1 cm; Wt 95.5 kg
[2023-10-05] MEDS ORDERED: PERC5TAB12 PO (11:34)
[2023-10-05] MEDS ORDERED: PERCOCET 5MG/325MG TAB PO ONE (11:35)
[2023-10-05 12:09] VITALS: BP 115/72; TEMP 98; O2SAT 99
[2023-10-06] MEDS ORDERED: LIDOCAINE 2% 100MG/5ML SDV (FOR ANES.) As Ordered ONE (11:13)
[2023-10-06] MEDS ORDERED: fentaNYL 100 MCG/2 ML INJECTION As Ordered ONE (11:13)
[2023-10-06] MEDS ORDERED: ONDANSETRON 4MG 2ML VIAL As Ordered ONE (11:13)
[2023-10-06] MEDS ORDERED: propofoL 200 MG/20 ML VIAL As Ordered ONE (11:13)
[2023-10-06] MEDS ORDERED: MIDAZOLAM INJ 2MG/2ML VIAL As Ordered ONE (11:14)
== END 2023-10-05 12:22 | disposition home or self-care (01) ==
LOC: M ED 08:26
DX: S22.31XA Fracture of one rib, right side, initial encounter for closed fracture (principal); W10.8XXA Fall (on) (from) other stairs and steps, initial encounter; Y92.89 Other specified places as the place of occurrence of the external cause; Y93.01 Activity, walking, marching and hiking; Y99.8 Other external cause status; M79.7 Fibromyalgia; Z87.442 Personal history of urinary calculi; Z88.8 Allergy status to other drugs, medicaments and biological substances; Z79.899 Other long term (current) drug therapy

== ENCOUNTER 2023-10-06 10:49 | Day surgery (SDC) | payer OTHER ==
[~2023-10-06] VITALS: Ht 165.1 cm; Wt 96.6 kg
[~2023-10-06 10:49] MED LIST changes: +ceFAZolin SOD 2 GM in IV 1 EA IV ONE
[2023-10-06] MEDS ORDERED: LR 1,000 ML IV SCH (11:10)
[2023-10-06] MEDS ORDERED: fentaNYL 100 MCG/2 ML INJECTION ONE (11:14)
[2023-10-06] MEDS ORDERED: ONDANSETRON 4MG 2ML VIAL ONE (11:14)
[2023-10-06] MEDS ORDERED: LIDOCAINE 2% 100MG/5ML SDV (FOR ANES.) ONE (11:14)
[2023-10-06] MEDS ORDERED: MIDAZOLAM INJ 2MG/2ML VIAL ONE (11:14)
[2023-10-06] MEDS ORDERED: propofoL 200 MG/20 ML VIAL ONE (11:14)
[2023-10-06] MEDS ORDERED: ONDANSETRON 4MG 2ML VIAL As Ordered ONE ×2 (11:56→14:28)
[2023-10-06] MEDS ORDERED: ACETAMINOPHEN 1000MG 100ML IV BAG As Ordered ONE (11:56)
[2023-10-06] MEDS ORDERED: LIDOCAINE 2% 100MG/5ML SDV (FOR ANES.) As Ordered ONE (11:56)
[2023-10-06] MEDS ORDERED: MIDAZOLAM INJ 2MG/2ML VIAL As Ordered ONE (11:56)
[2023-10-06] MEDS ORDERED: propofoL 200 MG/20 ML VIAL As Ordered ONE ×2 (11:56→14:38)
[2023-10-06] MEDS ORDERED: fentaNYL 100 MCG/2 ML INJECTION As Ordered ONE (11:56)
[2023-10-06] MEDS ORDERED: KETOROLAC 60MG 2ML VIAL As Ordered ONE ×2 (12:08→15:19)
[2023-10-06] MEDS ORDERED: dexmedeTOMIDine (4MCG/ML)200MCG/50ML BTL (PRECEDEX) As Ordered ONE (15:16)
[2023-10-06 15:24] VITALS: BP 128/66; TEMP 98.4; O2SAT 100
== END 2023-10-06 15:44 | disposition home or self-care (01) ==
LOC: M SDC 10:49
PROVIDERS: ATTEND Urology
DX: N20.0 Calculus of kidney (principal); G47.30 Sleep apnea, unspecified; M79.7 Fibromyalgia; K21.9 Gastro-esophageal reflux disease without esophagitis; G43.909 Migraine, unspecified, not intractable, without status migrainosus; F32.A Depression, unspecified; F41.9 Anxiety disorder, unspecified; J45.909 Unspecified asthma, uncomplicated; Z87.442 Personal history of urinary calculi; Z88.8 Allergy status to other drugs, medicaments and biological substances; Z79.899 Other long term (current) drug therapy
CPT/HCPCS: 50590; 74018; J0131; J1885; J2250; J2405; J3010

== ENCOUNTER → 2023-10-24 | Outpatient (CLI) | payer OTHER ==
[~2023-10-24] MED LIST changes: -ceFAZolin SOD 2 GM in IV 1 EA IV ONE
== END ==
LOC: M RAD 16:48
PROVIDERS: ATTEND Urology
DX: N20.0 Calculus of kidney (principal)

== ENCOUNTER → 2023-10-27 | Outpatient (REF) | payer OTHER | LOC: M SMT 12:58 | PROVIDERS: ATTEND Nurse Practitioner Family | DX: Z87.442 Personal history of urinary calculi (principal) ==

== ENCOUNTER → 2023-11-16 | Outpatient (CLI) | payer OTHER ==
[2023-11-16 17:37] LABS: BASO % 0.3 % (0.0-1.0); HEMATOCRIT 35.9 % (36.0-47.0); HEMOGLOBIN 12.3 g/dl (12.0-15.5); LYMPH # 1.7 10^3/uL (1.5-5.0); LYMPH % 14.6 % (24.0-44.0); MEAN CORPUSCULAR HEMOGLOBIN 31.3 pg (27.0-33.0); MEAN CORPUSCULAR HGB CONC 34.3 g/dl (32.0-36.5); MEAN CORPUSCULAR VOLUME 91.3 fl (80.0-96.0); MONO # 0.8 10^3/uL (0.0-0.8); NEUTROPHILS # 8.9 10^3/uL (1.5-8.5); PLATELET COUNT, AUTOMATED 349 10^3/uL (150-450); RED BLOOD COUNT 3.93 10^6/uL (4.00-5.40); WHITE BLOOD COUNT 11.6 10^3/uL (4.0-10.0)
[2023-11-16 17:43] LABS: ERYTHROCYTE SEDIMENTATION RATE 7 mm/hr (0-30)
[2023-11-16 18:00] LABS: C REACTIVE PROTEIN QUANTITATIV < 0.40 MG/DL (<1.0); RHEUMATOID FACTOR QUANT < 3.5 IU/ML (<14)
[2023-11-16 18:01] LABS: ALBUMIN 3.7 G/DL (3.2-5.2); ALKALINE PHOSPHATASE 64 U/L (46-116); ALT/SGPT 21 U/L (7.0-40); AST/SGOT 13 U/L (<34); BILIRUBIN,TOTAL 0.3 MG/DL (0.3-1.2); BLOOD UREA NITROGEN 16 MG/DL (9-23); CALCIUM LEVEL 9.1 MG/DL (8.5-10.1); CARBON DIOXIDE LEVEL 26 MMOL/L (20-31); CHLORIDE LEVEL 104 MMOL/L (98-107); CREATININE FOR GFR 0.67 MG/DL (0.55-1.30); GLOMERULAR FILTRATION RATE > 60.0 (>51); GLUCOSE, FASTING 100 MG/DL (60-100); POTASSIUM SERUM 4.2 MMOL/L (3.5-5.1); SODIUM LEVEL 136 MMOL/L (136-145); TOTAL PROTEIN 6.7 G/DL (5.7-8.2)
== END ==
LOC: M LAB 17:00
PROVIDERS: ATTEND Physician Assistant
DX: M06.4 Inflammatory polyarthropathy (principal)

== ENCOUNTER → 2023-12-15 | Outpatient (CLI) | payer OTHER | LOC: M RAD 17:20 | PROVIDERS: ATTEND Nurse Practitioner Family | DX: M79.671 Pain in right foot (principal); M79.672 Pain in left foot ==

== ENCOUNTER → 2024-02-02 | Outpatient (CLI) | payer OTHER ==
[2024-02-02 17:53] LABS: BASO % 0.5 % (0.0-1.0); EOS # 0.1 10^3/uL (0.0-0.5); EOS % 1.2 % (0.0-3.0); HEMATOCRIT 35.9 % (36.0-47.0); HEMOGLOBIN 12.5 g/dl (12.0-15.5); LYMPH # 3.4 10^3/uL (1.5-5.0); LYMPH % 39.8 % (24.0-44.0); MEAN CORPUSCULAR HEMOGLOBIN 31.6 pg (27.0-33.0); MEAN CORPUSCULAR HGB CONC 34.8 g/dl (32.0-36.5); MEAN CORPUSCULAR VOLUME 90.7 fl (80.0-96.0); MONO # 0.7 10^3/uL (0.0-0.8); NEUTROPHILS # 4.3 10^3/uL (1.5-8.5); NEUTROPHILS % 49.8 % (36.0-66.0); PLATELET COUNT, AUTOMATED 321 10^3/uL (150-450); RED BLOOD COUNT 3.96 10^6/uL (4.00-5.40); WHITE BLOOD COUNT 8.6 10^3/uL (4.0-10.0)
[2024-02-02 18:44] LABS: ALBUMIN 3.9 G/DL (3.2-5.2); ALKALINE PHOSPHATASE 72 U/L (46-116); ALT/SGPT 25 U/L (7.0-40); AST/SGOT 17 U/L (<34); BILIRUBIN,TOTAL 0.4 MG/DL (0.3-1.2); BLOOD UREA NITROGEN 14 MG/DL (9-23); CALCIUM LEVEL 9.8 MG/DL (8.5-10.1); CARBON DIOXIDE LEVEL 26 MMOL/L (20-31); CHLORIDE LEVEL 104 MMOL/L (98-107); CREATININE FOR GFR 0.78 MG/DL (0.55-1.30); ESTRADIOL < 19.0 PG/ML; FERRITIN 28.9 NG/ML (7.3-270.7); FOLATE > 24.0 NG/ML (>5.4); FREE T4 1.13 NG/DL (0.89-1.76); GLOMERULAR FILTRATION RATE > 60.0 (>51); GLUCOSE, FASTING 86 MG/DL (60-100); IRON (FE) 69 UG/DL (50-170); LUTEINIZING HORMONE 36.8 mIU/ML; PERCENT SATURATION 18.9 % (13.2-45.0); POTASSIUM SERUM 3.9 MMOL/L (3.5-5.1); SODIUM LEVEL 139 MMOL/L (136-145); THYROID STIMULATING HORMONE 2.012 uIU/ML (0.55-4.78); TOTAL IRON BINDING CAPACITY 365 UG/DL (250-425); TOTAL PROTEIN 6.9 G/DL (5.7-8.2); VITAMIN B12 LEVEL 539 PG/ML (211-911)
== END ==
LOC: M LAB 17:11
PROVIDERS: ATTEND Physician Assistant
DX: M79.7 Fibromyalgia (principal); N95.1 Menopausal and female climacteric states; R53.83 Other fatigue

== ENCOUNTER → 2024-09-24 | Outpatient (REF) | payer OTHER ==
[~2024-09-24] MED LIST changes: +GABA-1172 PO; -GABA-282 PO; +ONDA-282 PO; -ONDA4TAB6 PO; -POTA10808 PO; +POTA10809 PO
[2024-09-24 18:07] LABS: APPEARANCE, URINE HAZY (CLEAR); BACTERIA, URINE AUTO NEGATIVE (NEGATIVE); BILIRUBIN, URINE AUTO NEGATIVE (NEGATIVE); BLOOD, URINE BLOOD NEGATIVE (NEGATIVE); COLOR, URINE AMBER (YELLOW); GLUCOSE, URINE (UA) AUTO NEGATIVE (NEGATIVE); KETONE, URINE AUTO TRACE mg/dL (NEGATIVE); LEUKOCYTE ESTERASE, URINE AUTO TRACE (NEGATIVE); MUCUS, URINE MODERATE (NEGATIVE); NITRITE, URINE AUTO NEGATIVE (NEGATIVE); PROTEIN, URINE AUTO 1+ mg/dL (NEGATIVE); RBC, URINE AUTO 2 /HPF (0-3); SPECIFIC GRAVITY URINE AUTO 1.027 (1.002-1.035); SQUAMOUS EPITHELIAL CELL UR AU 11 /HPF (0-6); UROBILINOGEN, URINE AUTO 0.2 mg/dL (0.0-2.0); WBC, URINE AUTO 4 /HPF (0-3)
== END ==
LOC: M LAB REF 17:10
PROVIDERS: ATTEND Nurse Practitioner Family
DX: R80.9 Proteinuria, unspecified (principal)

== ENCOUNTER → 2024-10-07 | Outpatient (CLI) | payer OTHER ==
[2024-10-07 08:50] LABS: BASO # 0.1 10^3/uL (0.0-0.2); BASO % 0.7 % (0.0-1.0); EOS # 0.1 10^3/uL (0.0-0.5); EOS % 1.3 % (0.0-3.0); HEMATOCRIT 38.7 % (36.0-47.0); HEMOGLOBIN 13.6 g/dl (12.0-15.5); LYMPH # 2.8 10^3/uL (1.5-5.0); LYMPH % 37.6 % (24.0-44.0); MEAN CORPUSCULAR HEMOGLOBIN 31.9 pg (27.0-33.0); MEAN CORPUSCULAR HGB CONC 35.1 g/dl (32.0-36.5); MEAN CORPUSCULAR VOLUME 90.8 fl (80.0-96.0); MONO # 0.6 10^3/uL (0.0-0.8); MONO % 7.8 % (2.0-8.0); NEUTROPHILS # 3.9 10^3/uL (1.5-8.5); NEUTROPHILS % 52.1 % (36.0-66.0); PLATELET COUNT, AUTOMATED 352 10^3/uL (150-450); RED BLOOD COUNT 4.26 10^6/uL (4.00-5.40); WHITE BLOOD COUNT 7.5 10^3/uL (4.0-10.0)
[2024-10-07 09:01] LABS: ERYTHROCYTE SEDIMENTATION RATE 9 mm/hr (0-30)
[2024-10-07 09:16] LABS: TOTAL IRON BINDING CAPACITY 374 UG/DL (250-425)
[2024-10-07 09:17] LABS: ALBUMIN 3.5 G/DL (3.2-5.2); ALKALINE PHOSPHATASE 54 U/L (35-104); ALT/SGPT 23 U/L (7.0-40); AST/SGOT 13 U/L (<34); BILIRUBIN,TOTAL 0.4 MG/DL (0.3-1.2); BLOOD UREA NITROGEN 13 MG/DL (9-23); C REACTIVE PROTEIN QUANTITATIV 0.77 MG/DL (<1.0); CALCIUM LEVEL 9.5 MG/DL (8.5-10.1); CARBON DIOXIDE LEVEL 24 MMOL/L (20-31); CHLORIDE LEVEL 108 MMOL/L (98-107); CHOLESTEROL LEVEL 264 MG/DL (<200); CHOLESTEROL RISK RATIO 3.75 (<5); CREATININE FOR GFR 0.63 MG/DL (0.55-1.30); GLOMERULAR FILTRATION RATE > 60.0 (>51); GLUCOSE, FASTING 90 MG/DL (60-100); HDL CHOLESTEROL 70.4 MG/DL (>40); IRON (FE) 102 UG/DL (50-170); LDL CHOLESTEROL 153.8 MG/DL (<100); NON-HDL-C 193.6 MG/DL; PERCENT SATURATION 27.3 % (13.2-45.0); POTASSIUM SERUM 4.4 MMOL/L (3.5-5.1); SODIUM LEVEL 143 MMOL/L (136-145); TOTAL PROTEIN 6.5 G/DL (5.7-8.2); TRIGLYCERIDES LEVEL 199 MG/DL (<150)
[2024-10-07 09:20] LABS: FERRITIN 36.4 NG/ML (7.3-270.7); VITAMIN B12 LEVEL 1615 PG/ML (211-911)
== END ==
LOC: M LAB 08:26
PROVIDERS: ATTEND Physician Assistant
DX: R53.83 Other fatigue (principal); M79.7 Fibromyalgia; K21.9 Gastro-esophageal reflux disease without esophagitis

== ENCOUNTER → 2024-10-25 | Outpatient (CLI) | payer OTHER | LOC: M RAD 17:27 | PROVIDERS: ATTEND Nurse Practitioner Family | DX: Z87.442 Personal history of urinary calculi (principal) ==

== ENCOUNTER → 2024-10-25 | Outpatient (REF) | payer OTHER ==
[2024-10-25 18:57] LABS: TOTAL PROTEIN,RANDOM URINE 27.2 MG/DL (0.0-14.0)
[2024-10-25 19:15] LABS: CREATININE,RANDOM URINE 338.6 MG/DL
== END ==
LOC: M LAB REF 17:17
PROVIDERS: ATTEND Nurse Practitioner Family
DX: R80.9 Proteinuria, unspecified (principal)

== ENCOUNTER → 2024-12-29 | Outpatient (CLI) | payer OTHER ==
[2024-12-29 12:12] LABS: ALBUMIN 3.5 G/DL (3.2-5.2); BLOOD UREA NITROGEN 10 MG/DL (9-23); CALCIUM LEVEL 9.9 MG/DL (8.5-10.1); CARBON DIOXIDE LEVEL 29 MMOL/L (20-31); CHLORIDE LEVEL 104 MMOL/L (98-107); CREATININE FOR GFR 0.67 MG/DL (0.55-1.30); GLOMERULAR FILTRATION RATE > 60.0 (>51); GLUCOSE, FASTING 85 MG/DL (60-100); PHOSPHORUS LEVEL 2.8 MG/DL (2.5-4.9); SODIUM LEVEL 140 MMOL/L (136-145)
== END ==
LOC: M LAB 11:07
PROVIDERS: ATTEND Nurse Practitioner Family
DX: N18.2 Chronic kidney disease, stage 2 (mild) (principal); E87.6 Hypokalemia

== ENCOUNTER → 2025-08-25 | Outpatient (CLI) | payer OTHER ==
[~2025-08-25] MED LIST changes: -FLOM0.4C39 PO; +NORE-23 PO; -NORE1TAB94 PO; -PHEN-239 PO; +PHEN37.511 PO; +TAMS-18 PO; +TOPI-256 PO; -TOPI25TA10 PO
[2025-08-25 09:18] LABS: PLATELET COUNT, AUTOMATED 368 10^3/uL (150-450)
[2025-08-25 09:51] LABS: ALT/SGPT 19 U/L (7.0-40); AST/SGOT 16 U/L (<34); CALCIUM LEVEL 9.4 MG/DL (8.5-10.1); CARBON DIOXIDE LEVEL 29 MMOL/L (20-31); CHLORIDE LEVEL 103 MMOL/L (98-107); CREATININE FOR GFR 0.75 MG/DL (0.55-1.30); GLOMERULAR FILTRATION RATE > 90.0 (>51); POTASSIUM SERUM 4.3 MMOL/L (3.5-5.1); SODIUM LEVEL 141 MMOL/L (136-145)
[2025-08-25 09:54] LABS: LUTEINIZING HORMONE 11.3 mIU/ML
== END ==
LOC: M LAB 08:30
PROVIDERS: ATTEND Physician Assistant
DX: R53.83 Other fatigue (principal); E66.9 Obesity, unspecified; M79.7 Fibromyalgia